=== PATIENT | male | born 1965 | race Caucasian/White ===

== ENCOUNTER 2018-06-22 21:02 | Inpatient (IN) | payer MEDICARE, MEDICAID ==
[~2018-06-22] VITALS: Ht 185.4 cm; Wt 91.0 kg
[~2018-06-22 21:02] MED LIST: ACET-2247 PO; ARIP882S IM; CINA30 PO; CLOZ100 PO; COMBISP IH; DIVA250T45 PO; DSS100 PO; ESCI20TA PO; FLUT1DIS3 IH; GABA-531 PO; LEVE250T55 PO; LITH300C3 PO; LORA1TAB3 PO; SENN-175 PO
[2018-06-22 21:30] VITALS: BP 135/77
[2018-06-22] MEDS ORDERED: ZOLPIDEM TARTRATE 10 MG TABLET PO PRN (21:45)
[2018-06-22] MEDS ORDERED: IBUPROFEN 400 MG TABLET PO PRN (22:30)
[2018-06-22] MEDS ORDERED: ONDANSETRON HCL 4 MG TABLET PO PRN (22:30)
[2018-06-22] MEDS ORDERED: PETROLATUM,WHITE 71 GM JELLY TP PRN (22:30)
[2018-06-22] MEDS ORDERED: MAG HYDROX/AL HYDROX/SIMETH ES 30 ML SUSPENSION UDCUP PO PRN (22:30)
[2018-06-22] MEDS ORDERED: LOPERAMIDE HCL 2 MG CAPSULE PO PRN (22:30)
[2018-06-22] MEDS ORDERED: ALBUTEROL SULFATE HFA 90 MCG/PUFF 8 GM INHALER IH PRN (22:30)
[2018-06-22] MEDS ORDERED: MAGNESIUM HYDROXIDE SUSPENSION 30 ML UDCUP PO PRN (22:30)
[2018-06-22] MEDS ORDERED: DOCUSATE SODIUM 100 MG CAPSULE PO PRN (22:30)
[2018-06-22] MEDS ORDERED: CloNIDine HCL 0.1 MG TABLET PO PRN (22:30)
[2018-06-23 00:07] VITALS: BP 125/77
[2018-06-23] MEDS: CINACALCET HCL 30 MG TABLET PO SCH (07:13)
[2018-06-23 07:33] LABS: BASOPHILS % (AUTO) 0.4 % (0.0-2.0); EOSINOPHILS % (AUTO) 3.5 % (1.0-6.0); HEMATOCRIT 40.8 % (41-53); HEMOGLOBIN 13.9 g/dL (13.5-17.5); LYMPHOCYTES # (AUTO) 2.8 K/uL (1.0-4.8); LYMPHOCYTES % (AUTO) 28.2 % (22.0-44.0); MEAN CORPUSCULAR HEMOGLOBIN 31.5 pg (26.0-34.0); MEAN CORPUSCULAR HGB CONC 34.1 G/dL (31.0-37.0); MEAN CORPUSCULAR VOLUME 93 fL (80-100); MONOCYTES # (AUTO) 0.8 K/uL (0.1-1.0); MONOCYTES % (AUTO) 7.8 % (2.0-9.0); NEUTROPHILS # (AUTO) 5.9 K/uL (1.8-7.7); NEUTROPHILS % (AUTO) 60.1 % (40.0-70.0); PLATELET COUNT (AUTO) 153 K/uL (150-450); RED BLOOD CELL COUNT(AUTO) 4.41 MIL/uL (4.50-5.90); RED CELL DISTRIBUTION WIDTH 14.2 % (11.5-14.5)
[2018-06-23] MEDS ORDERED: NICOTINE 14 MG/24 HOUR PATCH TD SCH (09:00)
[2018-06-23] MEDS: LevETIRAcetam 500 MG TABLET PO SCH ×2 (09:06→16:35)
[2018-06-23] MEDS: FLUTICASONE/VILANTEROL 200-25 MCG/INH INHALER [14] IH SCH (09:06)
[2018-06-23 11:03] LABS: HEMOGLOBIN A1C 5.6 % (4.5-6.2)
[2018-06-23 11:04] LABS: ANION GAP 5 mmol/L (8-16); CALCIUM, TOTAL 10.5 mg/dL (8.8-10.5); CARBON DIOXIDE 27 mmol/L (22-29); CHLORIDE 110 mmol/L (98-107); CREATININE 1.18 mg/dL (0.60-1.30); GLOMERULAR FILTR. RATE CALC > 60 mL/min (>60); GLUCOSE,RANDOM 101 mg/dL (70-110); POTASSIUM 3.9 mmol/L (3.5-5.1); SODIUM SERUM 142 mmol/L (136-145); UREA NITROGEN, BLOOD 23 mg/dL (7-18)
[2018-06-23 11:18] LABS: ALANINE AMINOTRANSFERASE 35 U/L (12-78); ALBUMIN 3.6 g/dL (3.4-5.0); ALKALINE PHOSPHATASE 139 U/L (46-116); ASPARTATE AMINOTRANSFERASE 19 U/L (15-37); BILIRUBIN,TOTAL 0.4 mg/dL (0.1-1.0); CHOL/HDL RATIO 4.9 (4.2-7.3); CHOLESTEROL 123 mg/dL (131-200); HDL CHOLESTEROL 25 mg/dL (40-60); LDL CHOL (CALC.) 56 mg/dL (0-130); THYROID STIMULATING HORMONE 0.98 uIU/mL (0.36-3.74); TOTAL PROTEIN, SERUM 7.8 g/dL (6.4-8.2); TRIGLYCERIDES 210 mg/dL (15-150)
[2018-06-23 13:06] VITALS: BP 110/70
[2018-06-23] MEDS: DIVALPROEX SODIUM 500 MG DR TABLET PO SCH (17:19)
[2018-06-23 17:52] VITALS: BP 119/71
[2018-06-23] MEDS: CloZAPine 100 MG TABLET PO SCH (20:00)
[2018-06-24 06:43] LABS: GLUCOMETER DEV NAME(LOC) PVLAB139; GLUCOSE,POINT OF CARE 88 MG/DL (70-110)
[2018-06-24] MEDS: CINACALCET HCL 30 MG TABLET PO SCH (07:20)
[2018-06-24 07:31] LABS: CHOL/HDL RATIO 4.6 (4.2-7.3)
[2018-06-24] MEDS: LevETIRAcetam 500 MG TABLET PO SCH ×2 (08:01→16:19)
[2018-06-24] MEDS: DIVALPROEX SODIUM 500 MG DR TABLET PO SCH ×2 (08:01→16:19)
[2018-06-24] MEDS: CloZAPine 100 MG TABLET PO SCH ×2 (08:01→20:34)
[2018-06-24] MEDS: FLUTICASONE/VILANTEROL 200-25 MCG/INH INHALER [14] IH SCH (08:01)
[2018-06-24] MEDS ORDERED: LevETIRAcetam 250 MG TABLET PO SCH (09:00)
[2018-06-24 09:05] VITALS: BP 100/64
[2018-06-24 15:59] VITALS: BP 109/58
[2018-06-24 16:17] LABS: GLUCOMETER DEV NAME(LOC) 3EX 1; GLUCOSE,POINT OF CARE 94 MG/DL (70-110)
[2018-06-24 19:05] VITALS: BP 109/58
[2018-06-25 05:43] LABS: GLUCOMETER DEV NAME(LOC) PVLAB139; GLUCOSE,POINT OF CARE 82 MG/DL (70-110)
[2018-06-25] MEDS: CINACALCET HCL 30 MG TABLET PO SCH (07:20)
[2018-06-25] MEDS: CloZAPine 100 MG TABLET PO SCH ×2 (07:54→20:39)
[2018-06-25] MEDS: FLUTICASONE/VILANTEROL 200-25 MCG/INH INHALER [14] IH SCH (07:55)
[2018-06-25] MEDS: LevETIRAcetam 500 MG TABLET PO SCH ×2 (07:55→16:04)
[2018-06-25] MEDS: DIVALPROEX SODIUM 500 MG DR TABLET PO SCH ×2 (07:55→16:03)
[2018-06-25 10:28] VITALS: BP 103/53
[2018-06-25 16:25] VITALS: BP 112/63
[2018-06-25 17:03] LABS: GLUCOMETER DEV NAME(LOC) 3EX 1; GLUCOSE,POINT OF CARE 107 MG/DL (70-110)
[2018-06-26 05:33] LABS: GLUCOMETER DEV NAME(LOC) 3EX 1; GLUCOSE,POINT OF CARE 104 MG/DL (70-110)
[2018-06-26] MEDS: CINACALCET HCL 30 MG TABLET PO SCH (06:36)
[2018-06-26 09:06] VITALS: BP 130/75
[2018-06-26] MEDS: DIVALPROEX SODIUM 500 MG DR TABLET PO SCH ×2 (09:12→16:12)
[2018-06-26] MEDS: CloZAPine 100 MG TABLET PO SCH ×2 (09:12→20:06)
[2018-06-26] MEDS: FLUTICASONE/VILANTEROL 200-25 MCG/INH INHALER [14] IH SCH (09:12)
[2018-06-26] MEDS: LevETIRAcetam 500 MG TABLET PO SCH ×2 (09:12→16:12)
[2018-06-26 16:49] LABS: GLUCOMETER DEV NAME(LOC) 3EX 1; GLUCOSE,POINT OF CARE 113 MG/DL (70-110)
[2018-06-26 18:04] VITALS: BP 114/68
[2018-06-27 06:14] LABS: GLUCOMETER DEV NAME(LOC) PVLAB139; GLUCOSE,POINT OF CARE 112 MG/DL (70-110)
[2018-06-27] MEDS: CINACALCET HCL 30 MG TABLET PO SCH (06:50)
[2018-06-27 08:13] VITALS: BP 113/61
[2018-06-27] MEDS: LevETIRAcetam 500 MG TABLET PO SCH ×2 (08:14→16:54)
[2018-06-27] MEDS: CloZAPine 100 MG TABLET PO SCH ×2 (08:15→20:16)
[2018-06-27] MEDS: DIVALPROEX SODIUM 500 MG DR TABLET PO SCH ×2 (08:17→16:54)
[2018-06-27] MEDS: FLUTICASONE/VILANTEROL 200-25 MCG/INH INHALER [14] IH SCH (08:17)
[2018-06-27] MEDS: LORazepam 2 MG TABLET PO PRN ×2 (10:49→20:16)
[2018-06-27 19:37] VITALS: BP_SYST 136; BP_SYST 141; BP_DIAS 55
[2018-06-27 23:18] LABS: GLUCOMETER DEV NAME(LOC) 3EX 1; GLUCOSE,POINT OF CARE 170 MG/DL (70-110)
[2018-06-28] MEDS: CINACALCET HCL 30 MG TABLET PO SCH (06:57)
[2018-06-28 08:49] VITALS: BP 130/68
[2018-06-28] MEDS: CloZAPine 100 MG TABLET PO SCH ×2 (09:00→20:29)
[2018-06-28] MEDS: FLUTICASONE/VILANTEROL 200-25 MCG/INH INHALER [14] IH SCH (09:00)
[2018-06-28] MEDS: DIVALPROEX SODIUM 500 MG DR TABLET PO SCH ×2 (09:01→16:15)
[2018-06-28] MEDS: LevETIRAcetam 500 MG TABLET PO SCH ×2 (09:01→16:15)
[2018-06-28 16:37] VITALS: BP 116/69
[2018-06-28 16:39] LABS: GLUCOMETER DEV NAME(LOC) PVLAB139; GLUCOSE,POINT OF CARE 109 MG/DL (70-110)
[2018-06-28 16:39] LABS: GLUCOMETER DEV NAME(LOC) 3EX 1; GLUCOSE,POINT OF CARE 91 MG/DL (70-110)
[2018-06-28] MEDS: LORazepam 2 MG TABLET PO PRN (20:29)
[2018-06-29 05:23] LABS: GLUCOMETER DEV NAME(LOC) PVLAB139; GLUCOSE,POINT OF CARE 120 MG/DL (70-110)
[2018-06-29] MEDS: CINACALCET HCL 30 MG TABLET PO SCH (06:32)
[2018-06-29 09:05] VITALS: BP 126/80
[2018-06-29] MEDS: DIVALPROEX SODIUM 500 MG DR TABLET PO SCH ×2 (09:10→16:31)
[2018-06-29] MEDS: CloZAPine 100 MG TABLET PO SCH ×2 (09:10→20:22)
[2018-06-29] MEDS: FLUTICASONE/VILANTEROL 200-25 MCG/INH INHALER [14] IH SCH (09:11)
[2018-06-29] MEDS: LevETIRAcetam 500 MG TABLET PO SCH ×2 (09:11→16:31)
[2018-06-29 17:28] VITALS: BP 110/68
[2018-06-30 05:43] LABS: GLUCOMETER DEV NAME(LOC) PVLAB139; GLUCOSE,POINT OF CARE 111 MG/DL (70-110)
[2018-06-30] MEDS: CINACALCET HCL 30 MG TABLET PO SCH (07:09)
[2018-06-30 08:06] LABS: BASOPHILS % (AUTO) 0.6 % (0.0-2.0); EOSINOPHILS % (AUTO) 3.9 % (1.0-6.0); HEMATOCRIT 38.5 % (41-53); HEMOGLOBIN 12.9 g/dL (13.5-17.5); LYMPHOCYTES # (AUTO) 2.2 K/uL (1.0-4.8); LYMPHOCYTES % (AUTO) 32.4 % (22.0-44.0); MEAN CORPUSCULAR HGB CONC 33.5 G/dL (31.0-37.0); MEAN CORPUSCULAR VOLUME 92 fL (80-100); MONOCYTES # (AUTO) 0.7 K/uL (0.1-1.0); MONOCYTES % (AUTO) 10.8 % (2.0-9.0); NEUTROPHILS # (AUTO) 3.6 K/uL (1.8-7.7); NEUTROPHILS % (AUTO) 52.3 % (40.0-70.0); PLATELET COUNT (AUTO) 137 K/uL (150-450); RED BLOOD CELL COUNT(AUTO) 4.17 MIL/uL (4.50-5.90)
[2018-06-30] MEDS: FLUTICASONE/VILANTEROL 200-25 MCG/INH INHALER [14] IH SCH (09:07)
[2018-06-30] MEDS: CloZAPine 100 MG TABLET PO SCH ×2 (09:08→19:55)
[2018-06-30] MEDS: DIVALPROEX SODIUM 500 MG DR TABLET PO SCH ×2 (09:08→17:10)
[2018-06-30] MEDS: LevETIRAcetam 500 MG TABLET PO SCH ×2 (09:09→17:10)
[2018-06-30] MEDS: LORazepam 2 MG TABLET PO PRN (09:09)
[2018-06-30 09:19] VITALS: BP 115/78
[2018-06-30 16:06] VITALS: BP 121/77
[2018-06-30 17:24] LABS: GLUCOMETER DEV NAME(LOC) 3EX 1; GLUCOSE,POINT OF CARE 132 MG/DL (70-110)
[2018-07-01 05:59] LABS: GLUCOMETER DEV NAME(LOC) PVLAB139; GLUCOSE,POINT OF CARE 84 MG/DL (70-110)
[2018-07-01] MEDS: CINACALCET HCL 30 MG TABLET PO SCH (07:23)
[2018-07-01] MEDS: CloZAPine 100 MG TABLET PO SCH ×2 (09:06→20:43)
[2018-07-01] MEDS: DIVALPROEX SODIUM 500 MG DR TABLET PO SCH ×2 (09:06→16:17)
[2018-07-01] MEDS: FLUTICASONE/VILANTEROL 200-25 MCG/INH INHALER [14] IH SCH (09:06)
[2018-07-01] MEDS: LevETIRAcetam 500 MG TABLET PO SCH ×2 (09:06→16:17)
[2018-07-01 13:25] VITALS: BP 127/79
[2018-07-01 16:28] VITALS: BP 120/82
[2018-07-01 16:34] LABS: GLUCOMETER DEV NAME(LOC) PVLAB139; GLUCOSE,POINT OF CARE 86 MG/DL (70-110)
[2018-07-01] MEDS: LORazepam 2 MG TABLET PO PRN (20:43)
[2018-07-02 06:40] LABS: GLUCOMETER DEV NAME(LOC) 3EC; GLUCOSE,POINT OF CARE 87 MG/DL (70-110)
[2018-07-02] MEDS: CINACALCET HCL 30 MG TABLET PO SCH (06:42)
[2018-07-02 08:44] VITALS: BP 105/75
[2018-07-02] MEDS: LevETIRAcetam 500 MG TABLET PO SCH ×2 (09:18→16:31)
[2018-07-02] MEDS: FLUTICASONE/VILANTEROL 200-25 MCG/INH INHALER [14] IH SCH (09:19)
[2018-07-02] MEDS: DIVALPROEX SODIUM 500 MG DR TABLET PO SCH ×2 (09:19→16:31)
[2018-07-02] MEDS: CloZAPine 100 MG TABLET PO SCH ×2 (09:19→20:17)
[2018-07-02] MEDS ORDERED: SUMAtriptan SUCCINATE 25 MG TABLET PO PRN (11:00)
[2018-07-02 16:28] LABS: GLUCOMETER DEV NAME(LOC) 3EX 1; GLUCOSE,POINT OF CARE 94 MG/DL (70-110)
[2018-07-02 17:00] VITALS: BP 122/74
[2018-07-03] MEDS: LORazepam 2 MG TABLET PO PRN ×3 (05:59→16:43)
[2018-07-03 06:09] LABS: GLUCOMETER DEV NAME(LOC) 3EX 1; GLUCOSE,POINT OF CARE 84 MG/DL (70-110)
[2018-07-03] MEDS: CINACALCET HCL 30 MG TABLET PO SCH (06:58)
[2018-07-03] MEDS: CloZAPine 100 MG TABLET PO SCH ×2 (07:51→20:41)
[2018-07-03] MEDS: FLUTICASONE/VILANTEROL 200-25 MCG/INH INHALER [14] IH SCH (07:51)
[2018-07-03] MEDS: DIVALPROEX SODIUM 500 MG DR TABLET PO SCH ×2 (07:51→16:44)
[2018-07-03] MEDS: LevETIRAcetam 500 MG TABLET PO SCH ×2 (07:51→16:44)
[2018-07-03 09:27] VITALS: BP 112/75
[2018-07-03] MEDS: HALOPERIDOL 5 MG TABLET PO PRN (15:34)
[2018-07-03 16:50] VITALS: BP 121/77
[2018-07-03 16:53] LABS: GLUCOMETER DEV NAME(LOC) 3EC; GLUCOSE,POINT OF CARE 116 MG/DL (70-110)
[2018-07-04] MEDS: CINACALCET HCL 30 MG TABLET PO SCH (06:39)
[2018-07-04] MEDS: LevETIRAcetam 500 MG TABLET PO SCH ×2 (08:01→16:02)
[2018-07-04] MEDS: DIVALPROEX SODIUM 500 MG DR TABLET PO SCH ×2 (08:01→16:02)
[2018-07-04] MEDS: FLUTICASONE/VILANTEROL 200-25 MCG/INH INHALER [14] IH SCH (08:01)
[2018-07-04] MEDS: CloZAPine 100 MG TABLET PO SCH ×2 (08:02→20:13)
[2018-07-04 10:27] VITALS: BP 111/77
[2018-07-04 14:55] LABS: GLUCOMETER DEV NAME(LOC) 3EX 1; GLUCOSE,POINT OF CARE 96 MG/DL (70-110)
[2018-07-04] MEDS: HALOPERIDOL 5 MG TABLET PO PRN (16:02)
[2018-07-04 16:15] VITALS: BP 108/69
[2018-07-04 16:18] LABS: GLUCOMETER DEV NAME(LOC) 3EX 1; GLUCOSE,POINT OF CARE 114 MG/DL (70-110)
[2018-07-04] MEDS: LORazepam 2 MG TABLET PO PRN (20:12)
[2018-07-05 05:39] LABS: GLUCOMETER DEV NAME(LOC) 3EI C; GLUCOSE,POINT OF CARE 90 MG/DL (70-110)
[2018-07-05] MEDS: CINACALCET HCL 30 MG TABLET PO SCH (06:02)
[2018-07-05] MEDS: LevETIRAcetam 500 MG TABLET PO SCH ×2 (07:42→16:02)
[2018-07-05] MEDS: FLUTICASONE/VILANTEROL 200-25 MCG/INH INHALER [14] IH SCH (07:42)
[2018-07-05] MEDS: DIVALPROEX SODIUM 500 MG DR TABLET PO SCH ×2 (07:43→16:02)
[2018-07-05] MEDS: CloZAPine 100 MG TABLET PO SCH ×2 (07:43→20:01)
[2018-07-05] MEDS: HALOPERIDOL 5 MG TABLET PO PRN (16:02)
[2018-07-05 16:18] LABS: GLUCOMETER DEV NAME(LOC) 3EX 1; GLUCOSE,POINT OF CARE 89 MG/DL (70-110)
[2018-07-05 19:15] VITALS: BP 126/80
[2018-07-05] MEDS: LORazepam 2 MG TABLET PO PRN (19:55)
[2018-07-06 05:35] VITALS: BP 164/77
[2018-07-06 05:35] LABS: GLUCOMETER DEV NAME(LOC) 3EI C; GLUCOSE,POINT OF CARE 94 MG/DL (70-110)
[2018-07-06] MEDS: CINACALCET HCL 30 MG TABLET PO SCH (07:12)
[2018-07-06 08:15] VITALS: BP 125/89
[2018-07-06] MEDS: LevETIRAcetam 500 MG TABLET PO SCH ×2 (09:02→16:38)
[2018-07-06] MEDS: FLUTICASONE/VILANTEROL 200-25 MCG/INH INHALER [14] IH SCH (09:02)
[2018-07-06] MEDS: DIVALPROEX SODIUM 500 MG DR TABLET PO SCH ×2 (09:02→16:38)
[2018-07-06] MEDS: CloZAPine 100 MG TABLET PO SCH ×2 (09:02→20:24)
[2018-07-06 16:59] LABS: GLUCOMETER DEV NAME(LOC) 3EX 1; GLUCOSE,POINT OF CARE 89 MG/DL (70-110)
[2018-07-06 20:50] VITALS: BP 125/82
[2018-07-07 04:05] VITALS: BP 133/86
[2018-07-07] MEDS: LORazepam 2 MG TABLET PO PRN (04:11)
[2018-07-07 06:35] LABS: GLUCOMETER DEV NAME(LOC) 3EI C; GLUCOSE,POINT OF CARE 95 MG/DL (70-110)
[2018-07-07] MEDS: CINACALCET HCL 30 MG TABLET PO SCH (07:03)
[2018-07-07] MEDS: DIVALPROEX SODIUM 500 MG DR TABLET PO SCH ×2 (08:08→16:36)
[2018-07-07] MEDS: FLUTICASONE/VILANTEROL 200-25 MCG/INH INHALER [14] IH SCH (08:08)
[2018-07-07] MEDS: LevETIRAcetam 500 MG TABLET PO SCH ×2 (08:08→16:36)
[2018-07-07] MEDS: CloZAPine 100 MG TABLET PO SCH ×2 (08:09→20:53)
[2018-07-07 08:25] VITALS: BP 94/69
[2018-07-07 20:04] VITALS: BP 102/63
[2018-07-07] MEDS: ACETAMINOPHEN 325 MG TABLET PO PRN (22:45)
[2018-07-07 22:48] LABS: GLUCOMETER DEV NAME(LOC) 3EX 1; GLUCOSE,POINT OF CARE 99 MG/DL (70-110)
[2018-07-08 05:39] LABS: GLUCOMETER DEV NAME(LOC) 3EI C; GLUCOSE,POINT OF CARE 72 MG/DL (70-110)
[2018-07-08] MEDS: ACETAMINOPHEN 325 MG TABLET PO PRN (05:58)
[2018-07-08 06:32] VITALS: BP 140/87
[2018-07-08 06:45] LABS: BASOPHILS % (AUTO) 0.4 % (0.0-2.0); EOSINOPHILS % (AUTO) 4.8 % (1.0-6.0); HEMATOCRIT 39.9 % (41-53); HEMOGLOBIN 13.2 g/dL (13.5-17.5); LYMPHOCYTES # (AUTO) 2.1 K/uL (1.0-4.8); LYMPHOCYTES % (AUTO) 30.2 % (22.0-44.0); MEAN CORPUSCULAR HEMOGLOBIN 30.9 pg (26.0-34.0); MEAN CORPUSCULAR VOLUME 94 fL (80-100); MONOCYTES # (AUTO) 0.7 K/uL (0.1-1.0); MONOCYTES % (AUTO) 10.5 % (2.0-9.0); NEUTROPHILS # (AUTO) 3.7 K/uL (1.8-7.7); NEUTROPHILS % (AUTO) 54.1 % (40.0-70.0); PLATELET COUNT (AUTO) 134 K/uL (150-450); RED BLOOD CELL COUNT(AUTO) 4.27 MIL/uL (4.50-5.90); RED CELL DISTRIBUTION WIDTH 13.5 % (11.5-14.5)
[2018-07-08] MEDS: CINACALCET HCL 30 MG TABLET PO SCH (07:05)
[2018-07-08] MEDS: FLUTICASONE/VILANTEROL 200-25 MCG/INH INHALER [14] IH SCH (08:10)
[2018-07-08] MEDS: LevETIRAcetam 500 MG TABLET PO SCH ×2 (08:10→16:30)
[2018-07-08] MEDS: DIVALPROEX SODIUM 500 MG DR TABLET PO SCH ×2 (08:10→16:30)
[2018-07-08] MEDS: CloZAPine 100 MG TABLET PO SCH ×2 (08:10→20:28)
[2018-07-08 09:46] VITALS: BP 138/69
[2018-07-08 17:30] VITALS: BP 129/65
[2018-07-08 23:04] LABS: GLUCOMETER DEV NAME(LOC) 3EX 1; GLUCOSE,POINT OF CARE 93 MG/DL (70-110)
[2018-07-09 00:45] VITALS: BP 115/83
[2018-07-09] MEDS: CINACALCET HCL 30 MG TABLET PO SCH (07:07)
[2018-07-09] MEDS: DIVALPROEX SODIUM 500 MG DR TABLET PO SCH ×2 (08:18→16:57)
[2018-07-09] MEDS: LevETIRAcetam 500 MG TABLET PO SCH ×2 (08:18→16:57)
[2018-07-09] MEDS: CloZAPine 100 MG TABLET PO SCH ×2 (08:18→20:26)
[2018-07-09] MEDS: FLUTICASONE/VILANTEROL 200-25 MCG/INH INHALER [14] IH SCH (08:19)
[2018-07-09 10:06] VITALS: BP 140/70
[2018-07-09 16:23] LABS: GLUCOMETER DEV NAME(LOC) 3EX 1; GLUCOSE,POINT OF CARE 96 MG/DL (70-110)
[2018-07-09] MEDS: LORazepam 2 MG TABLET PO PRN (18:26)
[2018-07-09 19:08] VITALS: BP 141/76
[2018-07-10 05:40] VITALS: BP 124/68
[2018-07-10 05:44] LABS: GLUCOMETER DEV NAME(LOC) 3EI C; GLUCOSE,POINT OF CARE 85 MG/DL (70-110)
[2018-07-10] MEDS: LORazepam 2 MG TABLET PO PRN (05:53)
[2018-07-10] MEDS: CINACALCET HCL 30 MG TABLET PO SCH (07:00)
[2018-07-10] MEDS: FLUTICASONE/VILANTEROL 200-25 MCG/INH INHALER [14] IH SCH (08:21)
[2018-07-10] MEDS: HALOPERIDOL 5 MG TABLET PO PRN (08:22)
[2018-07-10] MEDS: DIVALPROEX SODIUM 500 MG DR TABLET PO SCH (10:00)
[2018-07-10] MEDS: CloZAPine 100 MG TABLET PO SCH (10:00)
[2018-07-10] MEDS: LevETIRAcetam 500 MG TABLET PO SCH (10:00)
[2018-07-10] MEDS ORDERED: FLUT1BLS IH (10:50)
== END 2018-07-10 15:20 | disposition home or self-care (01) | DRG 885 ==
LOC: 3EX 21:02
PROVIDERS: ADMIT Psychiatry & Neurology Psychiatry; ATTEND Psychiatry & Neurology Psychiatry
DX: F25.9 Schizoaffective disorder, unspecified (principal); R45.851 Suicidal ideations; E11.9 Type 2 diabetes mellitus without complications; B18.2 Chronic viral hepatitis C; D64.9 Anemia, unspecified; E78.5 Hyperlipidemia, unspecified; F17.200 Nicotine dependence, unspecified, uncomplicated; G40.909 Epilepsy, unspecified, not intractable, without status epilepticus; G43.909 Migraine, unspecified, not intractable, without status migrainosus; I10 Essential (primary) hypertension; J44.9 Chronic obstructive pulmonary disease, unspecified; K21.9 Gastro-esophageal reflux disease without esophagitis; K59.00 Constipation, unspecified; K74.60 Unspecified cirrhosis of liver; F41.9 Anxiety disorder, unspecified; F43.20 Adjustment disorder, unspecified; Z79.899 Other long term (current) drug therapy; Z71.6 Tobacco abuse counseling; Z88.0 Allergy status to penicillin; Z88.8 Allergy status to other drugs, medicaments and biological substances
CPT/HCPCS: 83036; 84443; 87081

== ENCOUNTER 2018-07-28 12:08 | Inpatient (IN) | payer MEDICARE, MEDICAID ==
[~2018-07-28] VITALS: Ht 185.4 cm; Wt 95.4 kg
[~2018-07-28 12:08] MED LIST changes: -ACET-2247 PO; -ARIP882S IM; -COMBISP IH; -DSS100 PO; -ESCI20TA PO; +FLUT1BLS IH; -FLUT1DIS3 IH; -GABA-531 PO; -LITH300C3 PO; -LORA1TAB3 PO; -SENN-175 PO
[2018-07-28 13:18] LABS: GLUCOSE,POINT OF CARE 87 MG/DL (70-110)
[2018-07-28 14:07] LABS: BASOPHILS % (AUTO) 0.2 % (0.0-2.0); EOSINOPHILS % (AUTO) 2.6 % (1.0-6.0); HEMATOCRIT 40.4 % (41-53); HEMOGLOBIN 13.2 g/dL (13.5-17.5); LYMPHOCYTES # (AUTO) 1.8 K/uL (1.0-4.8); LYMPHOCYTES % (AUTO) 25.1 % (22.0-44.0); MEAN CORPUSCULAR HEMOGLOBIN 30.4 pg (26.0-34.0); MEAN CORPUSCULAR HGB CONC 32.6 G/dL (31.0-37.0); MEAN CORPUSCULAR VOLUME 93 fL (80-100); MONOCYTES # (AUTO) 0.6 K/uL (0.1-1.0); MONOCYTES % (AUTO) 8.5 % (2.0-9.0); NEUTROPHILS # (AUTO) 4.6 K/uL (1.8-7.7); NEUTROPHILS % (AUTO) 63.6 % (40.0-70.0); PLATELET COUNT (AUTO) 135 K/uL (150-450); RED BLOOD CELL COUNT(AUTO) 4.34 MIL/uL (4.50-5.90); RED CELL DISTRIBUTION WIDTH 13.7 % (11.5-14.5)
[2018-07-28 14:19] LABS: ANION GAP 7 mmol/L (8-16); CALCIUM, TOTAL 9.1 mg/dL (8.8-10.5); CARBON DIOXIDE 29 mmol/L (22-29); CHLORIDE 106 mmol/L (98-107); CREATININE 0.92 mg/dL (0.60-1.30); GLOMERULAR FILTR. RATE CALC > 60 mL/min (>60); GLUCOSE,RANDOM 84 mg/dL (70-110); POTASSIUM 3.7 mmol/L (3.5-5.1); SODIUM SERUM 142 mmol/L (136-145); UREA NITROGEN, BLOOD 12 mg/dL (7-18)
[2018-07-28 14:25] LABS: ALANINE AMINOTRANSFERASE 35 U/L (12-78); ALBUMIN 3.6 g/dL (3.4-5.0); ALKALINE PHOSPHATASE 69 U/L (46-116); ASPARTATE AMINOTRANSFERASE 25 U/L (15-37); BILIRUBIN,TOTAL 0.3 mg/dL (0.1-1.0); TOTAL PROTEIN, SERUM 7.2 g/dL (6.4-8.2)
[2018-07-28 14:32] LABS: APPEARANCE,URINE CLEAR (CLEAR); BILIRUBIN,URINE NEGATIVE (NEGATIVE); GLUCOSE, URINE (UA) NEGATIVE (NEGATIVE); KETONES,URINE NEGATIVE (NEGATIVE); LEUKOCYTE ESTERASE ,URINE NEGATIVE (NEGATIVE); NITRATE,URINE NEGATIVE (NEGATIVE); OCCULT BLOOD,URINE NEGATIVE (NEGATIVE); PROTEIN,URINE NEGATIVE (NEGATIVE); UROBILINOGEN,URINE 0.2 mg/dL (<=1.0)
[2018-07-28 14:33] LABS: AMPHET/METH SCREEN,URINE NEGATIVE (NEGATIVE); BARBITURATE SCREEN, URINE NEGATIVE (NEGATIVE); BENZODIAZEPINES SCREEN,URINE NEGATIVE (NEGATIVE); CANNABINOID SCREEN,URINE NEGATIVE (NEGATIVE); COCAINE SCREEN,URINE NEGATIVE (NEGATIVE); METHADONE SCREEN, URINE NEGATIVE (NEGATIVE); OPIATE SCREEN,URINE NEGATIVE (NEGATIVE); PHENCYCLIDINE SCREEN,URINE NEGATIVE (NEGATIVE)
[2018-07-28 14:51] LABS: BACTERIA,URINE None Seen /HPF (None Seen); RBC,URINE None Seen /HPF (0-2); SQUAMOUS EPITHELIAL CELL,UR Rare /LPF (None Seen); WBC,URINE None Seen /HPF (0-5)
[2018-07-28] MEDS ORDERED: LORazepam 1 MG TABLET PO ONE (15:15)
[2018-07-28] MEDS: DIVALPROEX SODIUM 500 MG DR TABLET PO SCH (21:00)
[2018-07-29 05:17] LABS: BASOPHILS % (AUTO) 0.2 % (0.0-2.0); EOSINOPHILS % (AUTO) 4.1 % (1.0-6.0); HEMATOCRIT 40.4 % (41-53); HEMOGLOBIN 13.2 g/dL (13.5-17.5); LYMPHOCYTES % (AUTO) 30.6 % (22.0-44.0); MEAN CORPUSCULAR HEMOGLOBIN 30.8 pg (26.0-34.0); MEAN CORPUSCULAR HGB CONC 32.8 G/dL (31.0-37.0); MEAN CORPUSCULAR VOLUME 94 fL (80-100); MONOCYTES # (AUTO) 0.6 K/uL (0.1-1.0); MONOCYTES % (AUTO) 9.5 % (2.0-9.0); NEUTROPHILS # (AUTO) 3.6 K/uL (1.8-7.7); NEUTROPHILS % (AUTO) 55.6 % (40.0-70.0); PLATELET COUNT (AUTO) 138 K/uL (150-450); RED CELL DISTRIBUTION WIDTH 13.7 % (11.5-14.5)
[2018-07-29 05:24] LABS: CHOL/HDL RATIO 3.1 (4.2-7.3)
[2018-07-29] MEDS: DIVALPROEX SODIUM 500 MG DR TABLET PO SCH ×2 (10:13→16:10)
[2018-07-29] MEDS: CloZAPine 100 MG TABLET PO SCH ×2 (10:13→20:10)
[2018-07-29] MEDS: HALOPERIDOL 5 MG TABLET PO PRN ×2 (11:47→16:10)
[2018-07-29] MEDS: LORazepam 2 MG TABLET PO PRN ×2 (11:47→16:10)
[2018-07-29] MEDS: ZOLPIDEM TARTRATE 10 MG TABLET PO PRN (20:10)
[2018-07-30 02:07] VITALS: BP 134/99
[2018-07-30] MEDS: LORazepam 2 MG TABLET PO PRN ×3 (02:12→17:10)
[2018-07-30] MEDS ORDERED: GuaiFENesin/D-METHORPHAN [SUGAR-FREE] 200-20MG/10 ML SYRUP UDCUP PO PRN (07:30)
[2018-07-30] MEDS ORDERED: PETROLATUM,WHITE 71 GM JELLY TP PRN (07:30)
[2018-07-30] MEDS ORDERED: MAGNESIUM HYDROXIDE SUSPENSION 30 ML UDCUP PO PRN (07:30)
[2018-07-30] MEDS ORDERED: CloNIDine HCL 0.1 MG TABLET PO PRN (07:30)
[2018-07-30] MEDS ORDERED: ALBUTEROL SULFATE HFA 90 MCG/PUFF 8 GM INHALER IH PRN (07:30)
[2018-07-30] MEDS: DIVALPROEX SODIUM 500 MG DR TABLET PO SCH ×2 (08:10→17:06)
[2018-07-30] MEDS: CloZAPine 100 MG TABLET PO SCH ×2 (08:11→20:39)
[2018-07-30] MEDS: HALOPERIDOL 5 MG TABLET PO PRN ×2 (08:11→17:10)
[2018-07-30] MEDS: LevETIRAcetam 500 MG TABLET PO SCH ×2 (08:11→17:06)
[2018-07-30] MEDS: CINACALCET HCL 30 MG TABLET PO SCH (08:12)
[2018-07-30] MEDS: FLUTICASONE/VILANTEROL 200-25 MCG/INH INHALER [14] IH SCH (08:15)
[2018-07-30 08:52] VITALS: BP 126/69
[2018-07-30] MEDS ORDERED: CloZAPine 25 MG TABLET PO SCH (09:45)
[2018-07-30 16:06] VITALS: BP 131/82
[2018-07-30] MEDS: ZOLPIDEM TARTRATE 10 MG TABLET PO PRN (20:39)
[2018-07-30] MEDS: LOPERAMIDE HCL 2 MG CAPSULE PO PRN (20:39)
[2018-07-31 08:00] LABS: HEMOGLOBIN A1C 5.4 % (4.5-6.2)
[2018-07-31] MEDS: CINACALCET HCL 30 MG TABLET PO SCH (08:22)
[2018-07-31] MEDS: FLUTICASONE/VILANTEROL 200-25 MCG/INH INHALER [14] IH SCH (08:22)
[2018-07-31] MEDS: CloZAPine 100 MG TABLET PO SCH ×2 (08:22→20:35)
[2018-07-31] MEDS: DIVALPROEX SODIUM 500 MG DR TABLET PO SCH ×2 (08:22→15:54)
[2018-07-31] MEDS: LevETIRAcetam 500 MG TABLET PO SCH ×2 (08:22→15:54)
[2018-07-31] MEDS: LORazepam 2 MG TABLET PO PRN ×3 (08:22→19:11)
[2018-07-31] MEDS: HALOPERIDOL 5 MG TABLET PO PRN ×3 (08:23→21:26)
[2018-07-31 08:32] LABS: CHOL/HDL RATIO 3.8 (4.2-7.3); THYROID STIMULATING HORMONE 1.19 uIU/mL (0.36-3.74)
[2018-07-31] MEDS: LOPERAMIDE HCL 2 MG CAPSULE PO PRN (15:54)
[2018-07-31 16:09] VITALS: BP 130/91
[2018-07-31] MEDS: MUPIROCIN CALCIUM 2% 22 GM OINTMENT NASAL SCH (17:00)
[2018-07-31] MEDS: ZOLPIDEM TARTRATE 10 MG TABLET PO PRN (20:47)
[2018-08-01] MEDS: LORazepam 2 MG TABLET PO PRN ×2 (01:32→06:52)
[2018-08-01] MEDS: HALOPERIDOL 5 MG TABLET PO PRN (06:52)
[2018-08-01] MEDS: CINACALCET HCL 30 MG TABLET PO SCH (06:52)
[2018-08-01] MEDS: CloZAPine 100 MG TABLET PO SCH ×2 (09:05→20:18)
[2018-08-01] MEDS: LevETIRAcetam 500 MG TABLET PO SCH ×2 (09:06→16:23)
[2018-08-01] MEDS: DIVALPROEX SODIUM 500 MG DR TABLET PO SCH ×2 (09:06→16:23)
[2018-08-01] MEDS: MUPIROCIN CALCIUM 2% 22 GM OINTMENT NASAL SCH ×2 (09:10→16:27)
[2018-08-01] MEDS: FLUTICASONE/VILANTEROL 200-25 MCG/INH INHALER [14] IH SCH (12:59)
[2018-08-01 16:53] VITALS: BP 132/79
[2018-08-02] MEDS: CINACALCET HCL 30 MG TABLET PO SCH (07:24)
[2018-08-02 08:30] VITALS: BP 135/72
[2018-08-02] MEDS: MUPIROCIN CALCIUM 2% 22 GM OINTMENT NASAL SCH ×2 (09:12→17:14)
[2018-08-02] MEDS: HALOPERIDOL 5 MG TABLET PO PRN (09:12)
[2018-08-02] MEDS: CloZAPine 100 MG TABLET PO SCH ×2 (09:12→20:12)
[2018-08-02] MEDS: DIVALPROEX SODIUM 500 MG DR TABLET PO SCH ×2 (09:12→17:15)
[2018-08-02] MEDS: LevETIRAcetam 500 MG TABLET PO SCH ×2 (09:12→17:14)
[2018-08-02] MEDS: FLUTICASONE/VILANTEROL 200-25 MCG/INH INHALER [14] IH SCH (09:12)
[2018-08-02] MEDS: LORazepam 2 MG TABLET PO PRN (09:12)
[2018-08-02] MEDS: NICOTINE 14 MG/24 HOUR PATCH TD PRN (09:21)
[2018-08-02 17:07] VITALS: BP 122/81
[2018-08-02] MEDS: ZOLPIDEM TARTRATE 10 MG TABLET PO PRN (23:43)
[2018-08-03 05:00] VITALS: BP 144/73
[2018-08-03] MEDS: CINACALCET HCL 30 MG TABLET PO SCH (06:44)
[2018-08-03] MEDS: DIVALPROEX SODIUM 500 MG DR TABLET PO SCH ×2 (08:09→16:06)
[2018-08-03] MEDS: LevETIRAcetam 500 MG TABLET PO SCH ×2 (08:09→16:06)
[2018-08-03] MEDS: CloZAPine 100 MG TABLET PO SCH ×2 (08:09→20:11)
[2018-08-03] MEDS: MUPIROCIN CALCIUM 2% 22 GM OINTMENT NASAL SCH ×2 (08:10→16:06)
[2018-08-03] MEDS: FLUTICASONE/VILANTEROL 200-25 MCG/INH INHALER [14] IH SCH (08:10)
[2018-08-03] MEDS: LORazepam 2 MG TABLET PO PRN ×2 (08:13→16:07)
[2018-08-03] MEDS: HALOPERIDOL 5 MG TABLET PO PRN ×2 (08:13→16:06)
[2018-08-03 10:05] VITALS: BP 137/87
[2018-08-04 00:01] VITALS: BP 116/93
[2018-08-04] MEDS: ZOLPIDEM TARTRATE 10 MG TABLET PO PRN (00:03)
[2018-08-04] MEDS: HALOPERIDOL 5 MG TABLET PO PRN ×4 (00:03→20:00)
[2018-08-04] MEDS: LORazepam 2 MG TABLET PO PRN ×4 (01:39→20:00)
[2018-08-04] MEDS: CINACALCET HCL 30 MG TABLET PO SCH (07:24)
[2018-08-04 08:09] VITALS: BP 133/76
[2018-08-04] MEDS: DIVALPROEX SODIUM 500 MG DR TABLET PO SCH ×2 (08:10→16:24)
[2018-08-04] MEDS: LevETIRAcetam 500 MG TABLET PO SCH ×2 (08:10→16:24)
[2018-08-04] MEDS: CloZAPine 100 MG TABLET PO SCH ×2 (08:10→20:01)
[2018-08-04] MEDS: MUPIROCIN CALCIUM 2% 22 GM OINTMENT NASAL SCH ×2 (08:11→16:24)
[2018-08-04] MEDS: FLUTICASONE/VILANTEROL 200-25 MCG/INH INHALER [14] IH SCH (08:11)
[2018-08-04 16:00] VITALS: BP 140/88
[2018-08-05 01:05] VITALS: BP 154/67
[2018-08-05] MEDS: ZOLPIDEM TARTRATE 10 MG TABLET PO PRN ×2 (01:07→21:46)
[2018-08-05] MEDS: CINACALCET HCL 30 MG TABLET PO SCH (06:59)
[2018-08-05 07:42] LABS: BASOPHILS % (AUTO) 0.5 % (0.0-2.0); EOSINOPHILS % (AUTO) 3.5 % (1.0-6.0); HEMATOCRIT 39.6 % (41-53); LYMPHOCYTES # (AUTO) 1.2 K/uL (1.0-4.8); LYMPHOCYTES % (AUTO) 21.7 % (22.0-44.0); MEAN CORPUSCULAR HEMOGLOBIN 30.7 pg (26.0-34.0); MEAN CORPUSCULAR HGB CONC 32.8 G/dL (31.0-37.0); MEAN CORPUSCULAR VOLUME 94 fL (80-100); MONOCYTES # (AUTO) 0.6 K/uL (0.1-1.0); MONOCYTES % (AUTO) 9.9 % (2.0-9.0); NEUTROPHILS # (AUTO) 3.7 K/uL (1.8-7.7); NEUTROPHILS % (AUTO) 64.4 % (40.0-70.0); PLATELET COUNT (AUTO) 131 K/uL (150-450); RED BLOOD CELL COUNT(AUTO) 4.23 MIL/uL (4.50-5.90); RED CELL DISTRIBUTION WIDTH 13.2 % (11.5-14.5)
[2018-08-05] MEDS: DIVALPROEX SODIUM 500 MG DR TABLET PO SCH ×2 (08:58→16:13)
[2018-08-05] MEDS: CloZAPine 100 MG TABLET PO SCH ×2 (08:58→21:00)
[2018-08-05] MEDS: LevETIRAcetam 500 MG TABLET PO SCH ×2 (08:58→16:13)
[2018-08-05] MEDS: LORazepam 2 MG TABLET PO PRN ×2 (08:58→21:46)
[2018-08-05] MEDS: FLUTICASONE/VILANTEROL 200-25 MCG/INH INHALER [14] IH SCH (09:00)
[2018-08-05] MEDS: MUPIROCIN CALCIUM 2% 22 GM OINTMENT NASAL SCH (09:02)
[2018-08-05 09:45] VITALS: BP 144/83
[2018-08-05] MEDS: HALOPERIDOL 5 MG TABLET PO PRN (21:47)
[2018-08-06 03:30] VITALS: BP 104/81
[2018-08-06] MEDS: LORazepam 2 MG TABLET PO PRN ×4 (03:49→20:16)
[2018-08-06] MEDS: CINACALCET HCL 30 MG TABLET PO SCH (07:00)
[2018-08-06 08:30] VITALS: BP 146/82
[2018-08-06] MEDS: LevETIRAcetam 500 MG TABLET PO SCH ×2 (08:43→16:01)
[2018-08-06] MEDS: CloZAPine 100 MG TABLET PO SCH ×2 (08:43→20:15)
[2018-08-06] MEDS: DIVALPROEX SODIUM 500 MG DR TABLET PO SCH ×2 (08:44→16:01)
[2018-08-06] MEDS: HALOPERIDOL 5 MG TABLET PO PRN ×2 (08:44→20:16)
[2018-08-06] MEDS: FLUTICASONE/VILANTEROL 200-25 MCG/INH INHALER [14] IH SCH (08:47)
[2018-08-06 17:59] VITALS: BP 155/101
[2018-08-06] MEDS: ZOLPIDEM TARTRATE 10 MG TABLET PO PRN (20:15)
[2018-08-07 06:29] VITALS: BP 111/65
[2018-08-07] MEDS: CINACALCET HCL 30 MG TABLET PO SCH (07:07)
[2018-08-07 08:08] VITALS: BP 128/92
[2018-08-07] MEDS: DIVALPROEX SODIUM 500 MG DR TABLET PO SCH ×2 (08:23→15:53)
[2018-08-07] MEDS: LevETIRAcetam 500 MG TABLET PO SCH ×2 (08:23→15:53)
[2018-08-07] MEDS: CloZAPine 100 MG TABLET PO SCH ×2 (08:23→21:04)
[2018-08-07] MEDS: LORazepam 2 MG TABLET PO PRN ×2 (08:23→17:07)
[2018-08-07] MEDS: HALOPERIDOL 5 MG TABLET PO PRN ×2 (08:24→17:07)
[2018-08-07] MEDS: FLUTICASONE/VILANTEROL 200-25 MCG/INH INHALER [14] IH SCH (09:00)
[2018-08-07 16:03] VITALS: BP 126/82
[2018-08-07] MEDS: ZOLPIDEM TARTRATE 10 MG TABLET PO PRN (21:04)
[2018-08-08 02:48] VITALS: BP 139/93
[2018-08-08] MEDS: LORazepam 2 MG TABLET PO PRN ×2 (04:04→08:34)
[2018-08-08] MEDS: HALOPERIDOL 5 MG TABLET PO PRN ×2 (04:04→08:34)
[2018-08-08] MEDS: CINACALCET HCL 30 MG TABLET PO SCH (07:15)
[2018-08-08] MEDS: CloZAPine 100 MG TABLET PO SCH ×2 (08:20→21:10)
[2018-08-08] MEDS: FLUTICASONE/VILANTEROL 200-25 MCG/INH INHALER [14] IH SCH (08:20)
[2018-08-08] MEDS: DIVALPROEX SODIUM 500 MG DR TABLET PO SCH ×2 (08:20→16:05)
[2018-08-08] MEDS: LevETIRAcetam 500 MG TABLET PO SCH ×2 (08:20→16:05)
[2018-08-08 09:26] VITALS: BP 142/94
[2018-08-08 17:00] VITALS: BP 146/89
[2018-08-09 03:50] VITALS: BP 141/81
[2018-08-09] MEDS: IBUPROFEN 400 MG TABLET PO PRN (03:55)
[2018-08-09] MEDS: CINACALCET HCL 30 MG TABLET PO SCH (07:11)
[2018-08-09] MEDS: DIVALPROEX SODIUM 500 MG DR TABLET PO SCH ×2 (08:20→16:43)
[2018-08-09] MEDS: CloZAPine 100 MG TABLET PO SCH ×2 (08:21→20:47)
[2018-08-09] MEDS: LevETIRAcetam 500 MG TABLET PO SCH ×2 (08:22→16:43)
[2018-08-09] MEDS: LORazepam 2 MG TABLET PO PRN ×3 (08:22→23:50)
[2018-08-09] MEDS: HALOPERIDOL 5 MG TABLET PO PRN ×3 (08:22→23:50)
[2018-08-09] MEDS: FLUTICASONE/VILANTEROL 200-25 MCG/INH INHALER [14] IH SCH (09:03)
[2018-08-09 09:08] VITALS: BP 117/72
[2018-08-09 17:00] VITALS: BP 112/73
[2018-08-09] MEDS: ZOLPIDEM TARTRATE 10 MG TABLET PO PRN (21:06)
[2018-08-10 00:10] VITALS: BP 128/86
[2018-08-10] MEDS: CINACALCET HCL 30 MG TABLET PO SCH (07:08)
[2018-08-10 08:05] VITALS: BP 122/80
[2018-08-10] MEDS: CloZAPine 100 MG TABLET PO SCH ×2 (08:20→20:05)
[2018-08-10] MEDS: LevETIRAcetam 500 MG TABLET PO SCH ×2 (08:21→16:43)
[2018-08-10] MEDS: DIVALPROEX SODIUM 500 MG DR TABLET PO SCH ×2 (08:21→20:06)
[2018-08-10] MEDS: LORazepam 2 MG TABLET PO PRN ×3 (08:23→17:00)
[2018-08-10] MEDS: HALOPERIDOL 5 MG TABLET PO PRN ×2 (08:23→13:00)
[2018-08-10] MEDS: FLUTICASONE/VILANTEROL 200-25 MCG/INH INHALER [14] IH SCH (08:24)
[2018-08-10 17:02] VITALS: BP 135/84
[2018-08-10] MEDS: HALOPERIDOL 10 MG TABLET PO SCH (20:06)
[2018-08-11 05:05] VITALS: BP 146/82
[2018-08-11] MEDS: CINACALCET HCL 30 MG TABLET PO SCH (07:22)
[2018-08-11 08:10] VITALS: BP 140/78
[2018-08-11] MEDS: FLUTICASONE/VILANTEROL 200-25 MCG/INH INHALER [14] IH SCH (09:00)
[2018-08-11] MEDS: LevETIRAcetam 500 MG TABLET PO SCH ×2 (09:00→16:08)
[2018-08-11] MEDS: CloZAPine 100 MG TABLET PO SCH ×2 (09:00→20:28)
[2018-08-11] MEDS: HALOPERIDOL 5 MG TABLET PO PRN ×2 (09:02→16:10)
[2018-08-11] MEDS: DIVALPROEX SODIUM 500 MG DR TABLET PO SCH ×2 (09:02→20:28)
[2018-08-11] MEDS: LORazepam 2 MG TABLET PO PRN ×2 (09:02→16:10)
[2018-08-11] MEDS: IBUPROFEN 400 MG TABLET PO PRN (10:36)
[2018-08-11 16:33] VITALS: BP 144/79
[2018-08-11] MEDS: HALOPERIDOL 10 MG TABLET PO SCH (20:28)
[2018-08-11] MEDS: ZOLPIDEM TARTRATE 10 MG TABLET PO PRN (23:45)
[2018-08-12 02:00] VITALS: BP 129/85
[2018-08-12] MEDS: LORazepam 2 MG TABLET PO PRN ×3 (02:00→20:08)
[2018-08-12] MEDS: HALOPERIDOL 5 MG TABLET PO PRN ×2 (02:01→11:57)
[2018-08-12] MEDS: IBUPROFEN 400 MG TABLET PO PRN (02:20)
[2018-08-12] MEDS: CINACALCET HCL 30 MG TABLET PO SCH (07:08)
[2018-08-12 07:11] LABS: BASOPHILS % (AUTO) 0.3 % (0.0-2.0); EOSINOPHILS % (AUTO) 6.4 % (1.0-6.0); HEMATOCRIT 39.4 % (41-53); LYMPHOCYTES # (AUTO) 1.7 K/uL (1.0-4.8); LYMPHOCYTES % (AUTO) 30.1 % (22.0-44.0); MEAN CORPUSCULAR VOLUME 94 fL (80-100); MONOCYTES # (AUTO) 0.5 K/uL (0.1-1.0); MONOCYTES % (AUTO) 8.8 % (2.0-9.0); NEUTROPHILS # (AUTO) 3.2 K/uL (1.8-7.7); NEUTROPHILS % (AUTO) 54.4 % (40.0-70.0); PLATELET COUNT (AUTO) 133 K/uL (150-450); RED BLOOD CELL COUNT(AUTO) 4.19 MIL/uL (4.50-5.90); RED CELL DISTRIBUTION WIDTH 13.4 % (11.5-14.5)
[2018-08-12] MEDS: DIVALPROEX SODIUM 500 MG DR TABLET PO SCH ×2 (08:10→20:46)
[2018-08-12] MEDS: CloZAPine 100 MG TABLET PO SCH ×2 (08:10→20:46)
[2018-08-12] MEDS: FLUTICASONE/VILANTEROL 200-25 MCG/INH INHALER [14] IH SCH (08:12)
[2018-08-12] MEDS: LevETIRAcetam 500 MG TABLET PO SCH ×2 (08:12→16:18)
[2018-08-12] MEDS: CHOLECALCIFEROL (VIT D3) 400 UNITS TABLET PO SCH (16:18)
[2018-08-12] MEDS: HALOPERIDOL 10 MG TABLET PO SCH (20:46)
[2018-08-12 21:26] VITALS: BP 132/86
[2018-08-13 03:35] VITALS: BP 130/77
[2018-08-13] MEDS: HALOPERIDOL 5 MG TABLET PO PRN ×2 (03:40→08:35)
[2018-08-13] MEDS: CINACALCET HCL 30 MG TABLET PO SCH (06:41)
[2018-08-13] MEDS: FLUTICASONE/VILANTEROL 200-25 MCG/INH INHALER [14] IH SCH (08:22)
[2018-08-13] MEDS: LevETIRAcetam 500 MG TABLET PO SCH ×2 (08:22→16:42)
[2018-08-13] MEDS: DIVALPROEX SODIUM 500 MG DR TABLET PO SCH ×2 (08:22→20:25)
[2018-08-13] MEDS: CHOLECALCIFEROL (VIT D3) 400 UNITS TABLET PO SCH ×2 (08:23→16:42)
[2018-08-13] MEDS: CloZAPine 100 MG TABLET PO SCH ×2 (08:23→20:25)
[2018-08-13 08:30] VITALS: BP 143/80
[2018-08-13] MEDS: LORazepam 2 MG TABLET PO PRN ×2 (08:35→23:59)
[2018-08-13 17:14] VITALS: BP 125/85
[2018-08-13] MEDS: HALOPERIDOL 10 MG TABLET PO SCH (20:25)
[2018-08-13] MEDS: ZOLPIDEM TARTRATE 10 MG TABLET PO PRN (23:59)
[2018-08-14 00:01] VITALS: BP 147/90
[2018-08-14] MEDS: HALOPERIDOL 5 MG TABLET PO PRN ×4 (01:15→18:50)
[2018-08-14] MEDS: CINACALCET HCL 30 MG TABLET PO SCH (06:56)
[2018-08-14 07:03] LABS: ANION GAP 6 mmol/L (8-16); CALCIUM, TOTAL 9.1 mg/dL (8.8-10.5); CARBON DIOXIDE 28 mmol/L (22-29); CHLORIDE 109 mmol/L (98-107); CREATININE 1.09 mg/dL (0.60-1.30); GLOMERULAR FILTR. RATE CALC > 60 mL/min (>60); GLUCOSE,RANDOM 91 mg/dL (70-110); POTASSIUM 4.4 mmol/L (3.5-5.1); SODIUM SERUM 143 mmol/L (136-145); UREA NITROGEN, BLOOD 23 mg/dL (7-18)
[2018-08-14 07:59] LABS: VALPROIC ACID 61 mcg/mL (50-100)
[2018-08-14] MEDS: LORazepam 2 MG TABLET PO PRN ×3 (08:02→16:11)
[2018-08-14 08:20] VITALS: BP 110/85
[2018-08-14] MEDS: CloZAPine 100 MG TABLET PO SCH ×2 (08:29→21:29)
[2018-08-14] MEDS: CHOLECALCIFEROL (VIT D3) 400 UNITS TABLET PO SCH ×2 (08:30→16:10)
[2018-08-14] MEDS: LevETIRAcetam 500 MG TABLET PO SCH ×2 (08:30→16:10)
[2018-08-14] MEDS: DIVALPROEX SODIUM 500 MG DR TABLET PO SCH ×2 (08:30→21:30)
[2018-08-14] MEDS: FLUTICASONE/VILANTEROL 200-25 MCG/INH INHALER [14] IH SCH (08:42)
[2018-08-14] MEDS: LOPERAMIDE HCL 2 MG CAPSULE PO PRN (16:12)
[2018-08-14 17:00] VITALS: BP 132/72
[2018-08-14] MEDS: HALOPERIDOL 10 MG TABLET PO SCH (21:29)
[2018-08-15] MEDS: CINACALCET HCL 30 MG TABLET PO SCH (07:31)
[2018-08-15] MEDS: CHOLECALCIFEROL (VIT D3) 400 UNITS TABLET PO SCH ×2 (08:45→16:34)
[2018-08-15] MEDS: LevETIRAcetam 500 MG TABLET PO SCH ×2 (08:45→16:34)
[2018-08-15] MEDS: DIVALPROEX SODIUM 500 MG DR TABLET PO SCH ×2 (08:45→20:06)
[2018-08-15] MEDS: CloZAPine 100 MG TABLET PO SCH ×2 (08:45→20:07)
[2018-08-15] MEDS: HALOPERIDOL 5 MG TABLET PO PRN (08:47)
[2018-08-15] MEDS: LORazepam 2 MG TABLET PO PRN (08:48)
[2018-08-15] MEDS: FLUTICASONE/VILANTEROL 200-25 MCG/INH INHALER [14] IH SCH (09:00)
[2018-08-15 12:29] VITALS: BP 115/75
[2018-08-15 16:20] VITALS: BP 123/73
[2018-08-15] MEDS: HALOPERIDOL 10 MG TABLET PO SCH (20:06)
[2018-08-15] MEDS: ZOLPIDEM TARTRATE 10 MG TABLET PO PRN (20:30)
[2018-08-16] MEDS: HALOPERIDOL 5 MG TABLET PO PRN ×2 (01:14→09:24)
[2018-08-16 01:42] VITALS: BP 116/75
[2018-08-16] MEDS: CINACALCET HCL 30 MG TABLET PO SCH (07:18)
[2018-08-16] MEDS: FLUTICASONE/VILANTEROL 200-25 MCG/INH INHALER [14] IH SCH (09:23)
[2018-08-16] MEDS: CloZAPine 100 MG TABLET PO SCH ×2 (09:23→20:18)
[2018-08-16] MEDS: DIVALPROEX SODIUM 500 MG DR TABLET PO SCH ×2 (09:23→20:19)
[2018-08-16] MEDS: LevETIRAcetam 500 MG TABLET PO SCH ×2 (09:24→16:33)
[2018-08-16] MEDS: CHOLECALCIFEROL (VIT D3) 400 UNITS TABLET PO SCH ×2 (09:24→16:33)
[2018-08-16] MEDS: LORazepam 2 MG TABLET PO PRN (09:24)
[2018-08-16 10:36] VITALS: BP 136/84
[2018-08-16 17:21] VITALS: BP 136/69
[2018-08-16] MEDS ORDERED: HALOPERIDOL LACTATE 5 MG/ML VIAL IM ONE (18:45)
[2018-08-16] MEDS: HALOPERIDOL 10 MG TABLET PO SCH (20:18)
[2018-08-16] MEDS: ZOLPIDEM TARTRATE 10 MG TABLET PO PRN (21:43)
[2018-08-17] MEDS: CINACALCET HCL 30 MG TABLET PO SCH (07:12)
[2018-08-17] MEDS: DIVALPROEX SODIUM 500 MG DR TABLET PO SCH ×2 (08:49→20:51)
[2018-08-17] MEDS: LORazepam 2 MG TABLET PO PRN (08:49)
[2018-08-17] MEDS: FLUTICASONE/VILANTEROL 200-25 MCG/INH INHALER [14] IH SCH (08:49)
[2018-08-17] MEDS: CloZAPine 100 MG TABLET PO SCH ×2 (08:50→20:51)
[2018-08-17] MEDS: CHOLECALCIFEROL (VIT D3) 400 UNITS TABLET PO SCH ×2 (08:50→16:16)
[2018-08-17] MEDS: LevETIRAcetam 500 MG TABLET PO SCH ×2 (08:50→16:16)
[2018-08-17 16:18] VITALS: BP 148/85
[2018-08-17] MEDS: HALOPERIDOL 10 MG TABLET PO SCH (20:51)
[2018-08-18 04:00] VITALS: BP 143/83
[2018-08-18] MEDS: HALOPERIDOL 5 MG TABLET PO PRN ×3 (04:09→14:54)
[2018-08-18] MEDS: LORazepam 2 MG TABLET PO PRN ×3 (04:09→14:53)
[2018-08-18] MEDS: CINACALCET HCL 30 MG TABLET PO SCH (07:02)
[2018-08-18 08:50] VITALS: BP 133/82
[2018-08-18] MEDS: FLUTICASONE/VILANTEROL 200-25 MCG/INH INHALER [14] IH SCH (08:53)
[2018-08-18] MEDS: DIVALPROEX SODIUM 500 MG DR TABLET PO SCH ×2 (08:53→20:23)
[2018-08-18] MEDS: CHOLECALCIFEROL (VIT D3) 400 UNITS TABLET PO SCH ×2 (08:53→16:52)
[2018-08-18] MEDS: CloZAPine 100 MG TABLET PO SCH ×2 (08:53→20:24)
[2018-08-18] MEDS: LevETIRAcetam 500 MG TABLET PO SCH ×2 (08:53→16:52)
[2018-08-18] MEDS ORDERED: HALOPERIDOL LACTATE 5 MG/ML VIAL IM ONE (16:45)
[2018-08-18] MEDS ORDERED: LORazepam 2 MG/ML VIAL IM ONE (16:45)
[2018-08-18 17:38] VITALS: BP 127/80
[2018-08-18] MEDS: HALOPERIDOL 10 MG TABLET PO SCH (20:23)
[2018-08-18] MEDS: ZOLPIDEM TARTRATE 10 MG TABLET PO PRN (20:24)
[2018-08-19 05:28] VITALS: BP 116/79
[2018-08-19 07:12] LABS: BASOPHILS % (AUTO) 0.3 % (0.0-2.0); EOSINOPHILS % (AUTO) 4.1 % (1.0-6.0); HEMATOCRIT 39.3 % (41-53); LYMPHOCYTES # (AUTO) 2.1 K/uL (1.0-4.8); LYMPHOCYTES % (AUTO) 27.6 % (22.0-44.0); MEAN CORPUSCULAR HEMOGLOBIN 30.9 pg (26.0-34.0); MEAN CORPUSCULAR HGB CONC 33.2 G/dL (31.0-37.0); MEAN CORPUSCULAR VOLUME 93 fL (80-100); MONOCYTES # (AUTO) 0.6 K/uL (0.1-1.0); MONOCYTES % (AUTO) 8.7 % (2.0-9.0); NEUTROPHILS # (AUTO) 4.4 K/uL (1.8-7.7); NEUTROPHILS % (AUTO) 59.3 % (40.0-70.0); PLATELET COUNT (AUTO) 125 K/uL (150-450); RED BLOOD CELL COUNT(AUTO) 4.22 MIL/uL (4.50-5.90); RED CELL DISTRIBUTION WIDTH 13.5 % (11.5-14.5)
[2018-08-19] MEDS: CINACALCET HCL 30 MG TABLET PO SCH (07:13)
[2018-08-19 08:47] VITALS: BP 131/78
[2018-08-19] MEDS: CloZAPine 100 MG TABLET PO SCH ×2 (08:48→20:15)
[2018-08-19] MEDS: DIVALPROEX SODIUM 500 MG DR TABLET PO SCH ×2 (08:48→20:15)
[2018-08-19] MEDS: HALOPERIDOL 5 MG TABLET PO PRN (08:48)
[2018-08-19] MEDS: LevETIRAcetam 500 MG TABLET PO SCH ×2 (08:48→16:48)
[2018-08-19] MEDS: LORazepam 2 MG TABLET PO PRN (08:48)
[2018-08-19] MEDS: CHOLECALCIFEROL (VIT D3) 400 UNITS TABLET PO SCH ×2 (08:49→16:48)
[2018-08-19] MEDS: FLUTICASONE/VILANTEROL 200-25 MCG/INH INHALER [14] IH SCH (09:10)
[2018-08-19] MEDS: HALOPERIDOL 10 MG TABLET PO SCH (20:15)
[2018-08-20 04:41] VITALS: BP 124/75
[2018-08-20] MEDS: CINACALCET HCL 30 MG TABLET PO SCH (07:04)
[2018-08-20] MEDS: CHOLECALCIFEROL (VIT D3) 400 UNITS TABLET PO SCH ×2 (09:11→16:58)
[2018-08-20] MEDS: LORazepam 2 MG TABLET PO PRN (09:11)
[2018-08-20] MEDS: CloZAPine 100 MG TABLET PO SCH ×2 (09:11→21:11)
[2018-08-20] MEDS: FLUTICASONE/VILANTEROL 200-25 MCG/INH INHALER [14] IH SCH (09:11)
[2018-08-20] MEDS: HALOPERIDOL 5 MG TABLET PO PRN (09:11)
[2018-08-20] MEDS: DIVALPROEX SODIUM 500 MG DR TABLET PO SCH ×2 (09:11→21:11)
[2018-08-20] MEDS: LevETIRAcetam 500 MG TABLET PO SCH ×2 (09:11→16:58)
[2018-08-20] MEDS ORDERED: HALOPERIDOL LACTATE 5 MG/ML VIAL IM ONE (10:30)
[2018-08-20] MEDS ORDERED: DiphenhydrAMINE HCL 50 MG/ML VIAL IM ONE (10:30)
[2018-08-20] MEDS ORDERED: LORazepam 2 MG/ML VIAL IM ONE (10:30)
[2018-08-20 13:24] VITALS: BP 122/78
[2018-08-20] MEDS: HALOPERIDOL 10 MG TABLET PO SCH (21:11)
[2018-08-21] MEDS: CINACALCET HCL 30 MG TABLET PO SCH (07:15)
[2018-08-21] MEDS: LevETIRAcetam 500 MG TABLET PO SCH ×2 (08:29→16:24)
[2018-08-21] MEDS: DIVALPROEX SODIUM 500 MG DR TABLET PO SCH ×2 (08:30→20:44)
[2018-08-21] MEDS: CloZAPine 100 MG TABLET PO SCH ×2 (08:30→20:45)
[2018-08-21] MEDS: CHOLECALCIFEROL (VIT D3) 400 UNITS TABLET PO SCH ×2 (08:30→16:24)
[2018-08-21] MEDS: FLUTICASONE/VILANTEROL 200-25 MCG/INH INHALER [14] IH SCH (08:33)
[2018-08-21 10:51] VITALS: BP 140/86
[2018-08-21 16:01] VITALS: BP 133/77
[2018-08-21] MEDS: LORazepam 2 MG TABLET PO PRN (16:24)
[2018-08-21] MEDS: HALOPERIDOL 10 MG TABLET PO SCH (20:42)
[2018-08-22 03:05] VITALS: BP 131/89
[2018-08-22] MEDS: LORazepam 2 MG TABLET PO PRN (03:48)
[2018-08-22] MEDS: CINACALCET HCL 30 MG TABLET PO SCH (07:05)
[2018-08-22] MEDS: CloZAPine 100 MG TABLET PO SCH ×2 (08:42→20:12)
[2018-08-22] MEDS: DIVALPROEX SODIUM 500 MG DR TABLET PO SCH ×2 (08:42→20:12)
[2018-08-22] MEDS: LevETIRAcetam 500 MG TABLET PO SCH ×2 (08:42→16:25)
[2018-08-22] MEDS: CHOLECALCIFEROL (VIT D3) 400 UNITS TABLET PO SCH ×2 (08:42→16:25)
[2018-08-22] MEDS: FLUTICASONE/VILANTEROL 200-25 MCG/INH INHALER [14] IH SCH (08:43)
[2018-08-22 12:49] VITALS: BP 128/71
[2018-08-22] MEDS: HALOPERIDOL 10 MG TABLET PO SCH (20:12)
[2018-08-22 22:22] VITALS: BP 138/85
[2018-08-23] MEDS: CINACALCET HCL 30 MG TABLET PO SCH (07:15)
[2018-08-23] MEDS: CHOLECALCIFEROL (VIT D3) 400 UNITS TABLET PO SCH ×2 (08:30→16:15)
[2018-08-23] MEDS: FLUTICASONE/VILANTEROL 200-25 MCG/INH INHALER [14] IH SCH (08:30)
[2018-08-23] MEDS: DIVALPROEX SODIUM 500 MG DR TABLET PO SCH ×2 (08:32→20:30)
[2018-08-23] MEDS: LevETIRAcetam 500 MG TABLET PO SCH ×2 (08:32→16:14)
[2018-08-23] MEDS: CloZAPine 100 MG TABLET PO SCH ×2 (08:32→20:29)
[2018-08-23] MEDS: LORazepam 2 MG TABLET PO PRN ×2 (09:31→16:16)
[2018-08-23 09:41] VITALS: BP 119/85
[2018-08-23] MEDS: HALOPERIDOL 5 MG TABLET PO PRN (16:17)
[2018-08-23 16:20] VITALS: BP 124/67
[2018-08-23] MEDS: HALOPERIDOL 10 MG TABLET PO SCH (20:29)
[2018-08-24] MEDS: CINACALCET HCL 30 MG TABLET PO SCH (07:20)
[2018-08-24] MEDS: LevETIRAcetam 500 MG TABLET PO SCH ×2 (07:38→16:01)
[2018-08-24] MEDS: CloZAPine 100 MG TABLET PO SCH ×2 (07:38→20:08)
[2018-08-24] MEDS: DIVALPROEX SODIUM 500 MG DR TABLET PO SCH ×2 (07:38→20:07)
[2018-08-24] MEDS: HALOPERIDOL 5 MG TABLET PO PRN (07:39)
[2018-08-24] MEDS: NICOTINE 14 MG/24 HOUR PATCH TD PRN (07:39)
[2018-08-24] MEDS: LORazepam 2 MG TABLET PO PRN (07:39)
[2018-08-24 08:00] VITALS: BP 111/75
[2018-08-24] MEDS: FLUTICASONE/VILANTEROL 200-25 MCG/INH INHALER [14] IH SCH (08:58)
[2018-08-24] MEDS: CHOLECALCIFEROL (VIT D3) 400 UNITS TABLET PO SCH ×2 (09:00→16:01)
[2018-08-24 18:00] VITALS: BP 126/76
[2018-08-24] MEDS: HALOPERIDOL 10 MG TABLET PO SCH (20:07)
[2018-08-25] MEDS: LORazepam 2 MG TABLET PO PRN ×2 (03:15→20:21)
[2018-08-25] MEDS: CINACALCET HCL 30 MG TABLET PO SCH (06:57)
[2018-08-25] MEDS: CHOLECALCIFEROL (VIT D3) 400 UNITS TABLET PO SCH ×2 (08:29→16:30)
[2018-08-25] MEDS: CloZAPine 100 MG TABLET PO SCH ×2 (08:29→20:02)
[2018-08-25] MEDS: DIVALPROEX SODIUM 500 MG DR TABLET PO SCH ×2 (08:29→20:02)
[2018-08-25] MEDS: LevETIRAcetam 500 MG TABLET PO SCH ×2 (08:30→16:30)
[2018-08-25] MEDS: FLUTICASONE/VILANTEROL 200-25 MCG/INH INHALER [14] IH SCH (09:00)
[2018-08-25 09:39] VITALS: BP 131/86
[2018-08-25] MEDS: HALOPERIDOL 10 MG TABLET PO SCH (20:02)
[2018-08-26 03:39] VITALS: BP 142/74
[2018-08-26 07:02] LABS: BASOPHILS % (AUTO) 0.3 % (0.0-2.0); EOSINOPHILS % (AUTO) 4.6 % (1.0-6.0); HEMATOCRIT 41.1 % (41-53); HEMOGLOBIN 13.7 g/dL (13.5-17.5); LYMPHOCYTES # (AUTO) 2.1 K/uL (1.0-4.8); LYMPHOCYTES % (AUTO) 29.6 % (22.0-44.0); MEAN CORPUSCULAR HEMOGLOBIN 31.1 pg (26.0-34.0); MEAN CORPUSCULAR HGB CONC 33.5 G/dL (31.0-37.0); MEAN CORPUSCULAR VOLUME 93 fL (80-100); MONOCYTES # (AUTO) 0.8 K/uL (0.1-1.0); MONOCYTES % (AUTO) 10.8 % (2.0-9.0); NEUTROPHILS # (AUTO) 3.8 K/uL (1.8-7.7); NEUTROPHILS % (AUTO) 54.7 % (40.0-70.0); PLATELET COUNT (AUTO) 122 K/uL (150-450); RED BLOOD CELL COUNT(AUTO) 4.43 MIL/uL (4.50-5.90); RED CELL DISTRIBUTION WIDTH 13.6 % (11.5-14.5)
[2018-08-26] MEDS: CINACALCET HCL 30 MG TABLET PO SCH (07:08)
[2018-08-26] MEDS: CloZAPine 100 MG TABLET PO SCH ×2 (08:16→21:14)
[2018-08-26] MEDS: DIVALPROEX SODIUM 500 MG DR TABLET PO SCH ×2 (08:16→21:15)
[2018-08-26] MEDS: CHOLECALCIFEROL (VIT D3) 400 UNITS TABLET PO SCH ×2 (08:16→16:07)
[2018-08-26] MEDS: LevETIRAcetam 500 MG TABLET PO SCH ×2 (08:16→16:08)
[2018-08-26] MEDS: FLUTICASONE/VILANTEROL 200-25 MCG/INH INHALER [14] IH SCH (08:17)
[2018-08-26] MEDS: HALOPERIDOL 5 MG TABLET PO PRN (16:08)
[2018-08-26] MEDS: LORazepam 2 MG TABLET PO PRN (16:08)
[2018-08-26 16:30] VITALS: BP 137/99
[2018-08-26] MEDS: HALOPERIDOL 10 MG TABLET PO SCH (21:15)
[2018-08-27 03:15] VITALS: BP 146/83
[2018-08-27] MEDS: CINACALCET HCL 30 MG TABLET PO SCH (07:04)
[2018-08-27] MEDS: CloZAPine 100 MG TABLET PO SCH ×2 (08:10→20:41)
[2018-08-27] MEDS: DIVALPROEX SODIUM 500 MG DR TABLET PO SCH ×2 (08:10→20:41)
[2018-08-27] MEDS: HALOPERIDOL 5 MG TABLET PO PRN ×2 (08:10→19:00)
[2018-08-27] MEDS: LevETIRAcetam 500 MG TABLET PO SCH ×2 (08:10→17:52)
[2018-08-27] MEDS: CHOLECALCIFEROL (VIT D3) 400 UNITS TABLET PO SCH ×2 (08:10→17:52)
[2018-08-27] MEDS: LORazepam 2 MG TABLET PO PRN ×2 (08:10→19:00)
[2018-08-27] MEDS: FLUTICASONE/VILANTEROL 200-25 MCG/INH INHALER [14] IH SCH (08:11)
[2018-08-27 08:36] VITALS: BP 138/74
[2018-08-27 16:27] VITALS: BP 140/67
[2018-08-27] MEDS: HALOPERIDOL 10 MG TABLET PO SCH (20:41)
[2018-08-28 02:35] VITALS: BP 136/76
[2018-08-28] MEDS: CINACALCET HCL 30 MG TABLET PO SCH (07:09)
[2018-08-28 08:15] VITALS: BP 121/71
[2018-08-28] MEDS: CloZAPine 100 MG TABLET PO SCH ×2 (08:54→20:28)
[2018-08-28] MEDS: CHOLECALCIFEROL (VIT D3) 400 UNITS TABLET PO SCH ×2 (08:55→16:12)
[2018-08-28] MEDS: LevETIRAcetam 500 MG TABLET PO SCH ×2 (08:55→16:12)
[2018-08-28] MEDS: DIVALPROEX SODIUM 500 MG DR TABLET PO SCH ×2 (08:55→20:28)
[2018-08-28] MEDS: FLUTICASONE/VILANTEROL 200-25 MCG/INH INHALER [14] IH SCH (09:00)
[2018-08-28] MEDS ORDERED: PNEUMOCOCCAL VACCINE POLYVALENT 0.5 ML VIAL [PPSV23] IM ONE (13:15)
[2018-08-28 17:00] VITALS: BP 115/69
[2018-08-28] MEDS: HALOPERIDOL 10 MG TABLET PO SCH (20:27)
[2018-08-29 01:57] VITALS: BP 123/87
[2018-08-29] MEDS: CINACALCET HCL 30 MG TABLET PO SCH (07:07)
[2018-08-29 08:00] VITALS: BP 105/72
[2018-08-29] MEDS: CHOLECALCIFEROL (VIT D3) 400 UNITS TABLET PO SCH ×2 (09:10→16:03)
[2018-08-29] MEDS: DIVALPROEX SODIUM 500 MG DR TABLET PO SCH ×2 (09:10→20:01)
[2018-08-29] MEDS: HALOPERIDOL 5 MG TABLET PO PRN ×2 (09:11→16:03)
[2018-08-29] MEDS: LevETIRAcetam 500 MG TABLET PO SCH ×2 (09:11→16:03)
[2018-08-29] MEDS: LORazepam 2 MG TABLET PO PRN ×2 (09:11→19:25)
[2018-08-29] MEDS: CloZAPine 100 MG TABLET PO SCH ×2 (09:11→20:00)
[2018-08-29] MEDS: FLUTICASONE/VILANTEROL 200-25 MCG/INH INHALER [14] IH SCH (09:15)
[2018-08-29 19:42] VITALS: BP 124/75
[2018-08-29] MEDS: HALOPERIDOL 10 MG TABLET PO SCH (20:00)
[2018-08-30] MEDS: CINACALCET HCL 30 MG TABLET PO SCH (07:09)
[2018-08-30 08:00] VITALS: BP 120/80
[2018-08-30] MEDS: CloZAPine 100 MG TABLET PO SCH ×2 (08:48→20:31)
[2018-08-30] MEDS: DIVALPROEX SODIUM 500 MG DR TABLET PO SCH ×2 (08:48→20:31)
[2018-08-30] MEDS: LevETIRAcetam 500 MG TABLET PO SCH ×2 (08:48→17:40)
[2018-08-30] MEDS: LORazepam 2 MG TABLET PO PRN ×2 (08:48→14:04)
[2018-08-30] MEDS: DOCUSATE SODIUM 100 MG CAPSULE PO PRN (08:48)
[2018-08-30] MEDS: FLUTICASONE/VILANTEROL 200-25 MCG/INH INHALER [14] IH SCH (08:49)
[2018-08-30] MEDS: CHOLECALCIFEROL (VIT D3) 400 UNITS TABLET PO SCH ×2 (08:50→17:40)
[2018-08-30] MEDS: HALOPERIDOL 5 MG TABLET PO PRN (14:22)
[2018-08-30 16:19] VITALS: BP 119/76
[2018-08-30] MEDS: HALOPERIDOL 10 MG TABLET PO SCH (20:31)
[2018-08-31 02:00] VITALS: BP 126/81
[2018-08-31] MEDS: ZOLPIDEM TARTRATE 10 MG TABLET PO PRN ×2 (02:01→20:53)
[2018-08-31 04:07] VITALS: BP 138/79
[2018-08-31] MEDS: IBUPROFEN 400 MG TABLET PO PRN (04:11)
[2018-08-31] MEDS: CINACALCET HCL 30 MG TABLET PO SCH (06:57)
[2018-08-31] MEDS: LevETIRAcetam 500 MG TABLET PO SCH ×2 (07:29→16:14)
[2018-08-31] MEDS: CHOLECALCIFEROL (VIT D3) 400 UNITS TABLET PO SCH ×2 (07:29→16:14)
[2018-08-31] MEDS: DIVALPROEX SODIUM 500 MG DR TABLET PO SCH ×2 (07:29→20:52)
[2018-08-31] MEDS: CloZAPine 100 MG TABLET PO SCH ×2 (07:29→20:52)
[2018-08-31] MEDS: LORazepam 2 MG TABLET PO PRN (07:32)
[2018-08-31] MEDS: HALOPERIDOL 5 MG TABLET PO PRN (07:32)
[2018-08-31] MEDS: FLUTICASONE/VILANTEROL 200-25 MCG/INH INHALER [14] IH SCH (07:34)
[2018-08-31 08:00] VITALS: BP 130/90
[2018-08-31] MEDS: HALOPERIDOL 10 MG TABLET PO SCH (20:51)
[2018-09-01] MEDS: HALOPERIDOL 5 MG TABLET PO PRN (05:10)
[2018-09-01] MEDS: CINACALCET HCL 30 MG TABLET PO SCH (06:38)
[2018-09-01] MEDS: LORazepam 2 MG TABLET PO PRN (07:56)
[2018-09-01] MEDS: CloZAPine 100 MG TABLET PO SCH ×2 (07:56→20:53)
[2018-09-01] MEDS: LevETIRAcetam 500 MG TABLET PO SCH ×2 (07:56→16:18)
[2018-09-01] MEDS: CHOLECALCIFEROL (VIT D3) 400 UNITS TABLET PO SCH ×2 (07:57→16:18)
[2018-09-01] MEDS: FLUTICASONE/VILANTEROL 200-25 MCG/INH INHALER [14] IH SCH (07:57)
[2018-09-01] MEDS: DIVALPROEX SODIUM 500 MG DR TABLET PO SCH ×2 (07:58→20:54)
[2018-09-01] MEDS: HALOPERIDOL 10 MG TABLET PO SCH (20:53)
[2018-09-01] MEDS: ZOLPIDEM TARTRATE 10 MG TABLET PO PRN (20:55)
[2018-09-02] MEDS: ACETAMINOPHEN 325 MG TABLET PO PRN (03:23)
[2018-09-02 03:30] VITALS: BP 128/89
[2018-09-02] MEDS: CINACALCET HCL 30 MG TABLET PO SCH (06:32)
[2018-09-02 07:04] LABS: BASOPHILS % (AUTO) 0.5 % (0.0-2.0); EOSINOPHILS % (AUTO) 4.9 % (1.0-6.0); HEMATOCRIT 42.1 % (41-53); HEMOGLOBIN 14.2 g/dL (13.5-17.5); LYMPHOCYTES # (AUTO) 1.9 K/uL (1.0-4.8); LYMPHOCYTES % (AUTO) 28.4 % (22.0-44.0); MEAN CORPUSCULAR HEMOGLOBIN 30.8 pg (26.0-34.0); MEAN CORPUSCULAR HGB CONC 33.7 G/dL (31.0-37.0); MEAN CORPUSCULAR VOLUME 91 fL (80-100); MONOCYTES # (AUTO) 0.7 K/uL (0.1-1.0); MONOCYTES % (AUTO) 10.4 % (2.0-9.0); NEUTROPHILS # (AUTO) 3.8 K/uL (1.8-7.7); NEUTROPHILS % (AUTO) 55.8 % (40.0-70.0); PLATELET COUNT (AUTO) 111 K/uL (150-450); RED CELL DISTRIBUTION WIDTH 13.6 % (11.5-14.5)
[2018-09-02] MEDS: CHOLECALCIFEROL (VIT D3) 400 UNITS TABLET PO SCH ×2 (08:04→16:59)
[2018-09-02] MEDS: HALOPERIDOL 5 MG TABLET PO PRN ×2 (08:04→14:10)
[2018-09-02] MEDS: LevETIRAcetam 500 MG TABLET PO SCH ×2 (08:04→16:59)
[2018-09-02] MEDS: DIVALPROEX SODIUM 500 MG DR TABLET PO SCH ×2 (08:04→20:26)
[2018-09-02] MEDS: CloZAPine 100 MG TABLET PO SCH ×2 (08:04→20:25)
[2018-09-02] MEDS: LORazepam 2 MG TABLET PO PRN ×2 (08:04→14:10)
[2018-09-02] MEDS: FLUTICASONE/VILANTEROL 200-25 MCG/INH INHALER [14] IH SCH (08:05)
[2018-09-02 09:49] VITALS: BP 153/92
[2018-09-02] MEDS: IBUPROFEN 400 MG TABLET PO PRN (14:10)
[2018-09-02 16:30] VITALS: BP 128/74
[2018-09-02] MEDS: HALOPERIDOL 10 MG TABLET PO SCH (20:26)
[2018-09-03] MEDS: ZOLPIDEM TARTRATE 10 MG TABLET PO PRN ×2 (00:45→21:38)
[2018-09-03] MEDS: LORazepam 2 MG TABLET PO PRN (00:45)
[2018-09-03] MEDS: CINACALCET HCL 30 MG TABLET PO SCH (06:47)
[2018-09-03] MEDS: LevETIRAcetam 500 MG TABLET PO SCH ×2 (08:50→16:00)
[2018-09-03] MEDS: CHOLECALCIFEROL (VIT D3) 400 UNITS TABLET PO SCH ×2 (08:50→16:00)
[2018-09-03] MEDS: DIVALPROEX SODIUM 500 MG DR TABLET PO SCH ×2 (08:50→21:35)
[2018-09-03] MEDS: FLUTICASONE/VILANTEROL 200-25 MCG/INH INHALER [14] IH SCH (08:50)
[2018-09-03] MEDS: NICOTINE 14 MG/24 HOUR PATCH TD PRN (08:50)
[2018-09-03] MEDS: CloZAPine 100 MG TABLET PO SCH ×2 (08:50→21:35)
[2018-09-03] MEDS: HALOPERIDOL 5 MG TABLET PO PRN (16:00)
[2018-09-03 16:17] VITALS: BP 142/84
[2018-09-03 16:43] LABS: GLUCOMETER DEV NAME(LOC) 3EX 1; GLUCOSE,POINT OF CARE 108 MG/DL (70-110)
[2018-09-03] MEDS: HALOPERIDOL 10 MG TABLET PO SCH (21:35)
[2018-09-04 06:18] VITALS: BP 134/88
[2018-09-04] MEDS: CINACALCET HCL 30 MG TABLET PO SCH (06:43)
[2018-09-04] MEDS: CHOLECALCIFEROL (VIT D3) 400 UNITS TABLET PO SCH ×2 (08:13→16:31)
[2018-09-04] MEDS: DIVALPROEX SODIUM 500 MG DR TABLET PO SCH ×2 (08:13→20:14)
[2018-09-04] MEDS: LevETIRAcetam 500 MG TABLET PO SCH ×2 (08:14→16:31)
[2018-09-04] MEDS: CloZAPine 100 MG TABLET PO SCH ×2 (08:14→20:13)
[2018-09-04] MEDS: FLUTICASONE/VILANTEROL 200-25 MCG/INH INHALER [14] IH SCH (08:14)
[2018-09-04 11:00] VITALS: BP 117/73
[2018-09-04 18:38] VITALS: BP 130/82
[2018-09-04] MEDS: HALOPERIDOL 10 MG TABLET PO SCH (20:14)
[2018-09-04] MEDS: ZOLPIDEM TARTRATE 10 MG TABLET PO PRN (20:14)
[2018-09-05 01:29] VITALS: BP 125/65
[2018-09-05] MEDS: IBUPROFEN 400 MG TABLET PO PRN (01:30)
[2018-09-05] MEDS: CINACALCET HCL 30 MG TABLET PO SCH (07:24)
[2018-09-05] MEDS: LevETIRAcetam 500 MG TABLET PO SCH ×2 (08:58→16:55)
[2018-09-05] MEDS: DIVALPROEX SODIUM 500 MG DR TABLET PO SCH ×2 (08:58→21:23)
[2018-09-05] MEDS: CloZAPine 100 MG TABLET PO SCH ×2 (08:59→21:23)
[2018-09-05] MEDS: CHOLECALCIFEROL (VIT D3) 400 UNITS TABLET PO SCH ×2 (08:59→16:55)
[2018-09-05] MEDS: FLUTICASONE/VILANTEROL 200-25 MCG/INH INHALER [14] IH SCH (09:00)
[2018-09-05 09:32] VITALS: BP 156/92
[2018-09-05] MEDS: LORazepam 2 MG TABLET PO PRN ×2 (10:05→16:55)
[2018-09-05 19:04] VITALS: BP 145/75
[2018-09-05] MEDS: HALOPERIDOL 10 MG TABLET PO SCH (21:23)
[2018-09-06 00:54] VITALS: BP 131/79
[2018-09-06 02:20] VITALS: BP 124/86
[2018-09-06] MEDS: IBUPROFEN 400 MG TABLET PO PRN ×2 (02:25→14:19)
[2018-09-06] MEDS: CINACALCET HCL 30 MG TABLET PO SCH (07:04)
[2018-09-06 08:14] VITALS: BP 142/83
[2018-09-06] MEDS: FLUTICASONE/VILANTEROL 200-25 MCG/INH INHALER [14] IH SCH (08:48)
[2018-09-06] MEDS: CloZAPine 100 MG TABLET PO SCH ×2 (08:48→20:39)
[2018-09-06] MEDS: LevETIRAcetam 500 MG TABLET PO SCH ×2 (08:49→16:41)
[2018-09-06] MEDS: CHOLECALCIFEROL (VIT D3) 400 UNITS TABLET PO SCH ×2 (08:49→16:41)
[2018-09-06] MEDS: DIVALPROEX SODIUM 500 MG DR TABLET PO SCH ×2 (08:49→20:40)
[2018-09-06] MEDS: LORazepam 2 MG TABLET PO PRN ×2 (08:50→14:19)
[2018-09-06] MEDS: HALOPERIDOL 5 MG TABLET PO PRN ×2 (08:53→16:43)
[2018-09-06 16:51] VITALS: BP 122/80
[2018-09-06] MEDS: HALOPERIDOL 10 MG TABLET PO SCH (20:39)
[2018-09-07 05:12] VITALS: BP 137/76
[2018-09-07 06:30] VITALS: BP 158/82
[2018-09-07] MEDS: IBUPROFEN 400 MG TABLET PO PRN ×2 (06:36→17:26)
[2018-09-07] MEDS: CINACALCET HCL 30 MG TABLET PO SCH (06:36)
[2018-09-07] MEDS: CHOLECALCIFEROL (VIT D3) 400 UNITS TABLET PO SCH ×2 (07:34→16:23)
[2018-09-07] MEDS: CloZAPine 100 MG TABLET PO SCH ×2 (07:34→20:26)
[2018-09-07] MEDS: DIVALPROEX SODIUM 500 MG DR TABLET PO SCH ×2 (07:35→20:26)
[2018-09-07] MEDS: LevETIRAcetam 500 MG TABLET PO SCH ×2 (07:35→16:23)
[2018-09-07] MEDS: FLUTICASONE/VILANTEROL 200-25 MCG/INH INHALER [14] IH SCH (07:35)
[2018-09-07] MEDS: HALOPERIDOL 5 MG TABLET PO PRN (08:26)
[2018-09-07] MEDS: LORazepam 2 MG TABLET PO PRN (08:26)
[2018-09-07 09:23] VITALS: BP 134/83
[2018-09-07 16:06] VITALS: BP 128/78
[2018-09-07] MEDS: HALOPERIDOL 10 MG TABLET PO SCH (20:26)
[2018-09-08 00:37] VITALS: BP 117/70
[2018-09-08] MEDS: ZOLPIDEM TARTRATE 10 MG TABLET PO PRN (00:39)
[2018-09-08] MEDS: LORazepam 2 MG TABLET PO PRN ×3 (00:39→17:30)
[2018-09-08] MEDS: MAG HYDROX/AL HYDROX/SIMETH ES 30 ML SUSPENSION UDCUP PO PRN (06:51)
[2018-09-08] MEDS: CINACALCET HCL 30 MG TABLET PO SCH (07:21)
[2018-09-08] MEDS: LevETIRAcetam 500 MG TABLET PO SCH ×2 (08:50→15:56)
[2018-09-08] MEDS: DIVALPROEX SODIUM 500 MG DR TABLET PO SCH ×2 (08:51→19:55)
[2018-09-08] MEDS: HALOPERIDOL 5 MG TABLET PO PRN ×2 (08:52→15:32)
[2018-09-08] MEDS: CHOLECALCIFEROL (VIT D3) 400 UNITS TABLET PO SCH ×2 (08:52→15:56)
[2018-09-08] MEDS: CloZAPine 100 MG TABLET PO SCH ×2 (08:52→19:54)
[2018-09-08] MEDS: FLUTICASONE/VILANTEROL 200-25 MCG/INH INHALER [14] IH SCH (08:54)
[2018-09-08] MEDS: NICOTINE 14 MG/24 HOUR PATCH TD PRN ×2 (08:54→09:59)
[2018-09-08 12:42] VITALS: BP 141/71
[2018-09-08 19:18] VITALS: BP 137/86
[2018-09-08] MEDS: HALOPERIDOL 10 MG TABLET PO SCH (19:55)
[2018-09-09] MEDS: ACETAMINOPHEN 325 MG TABLET PO PRN (04:23)
[2018-09-09 04:55] VITALS: BP 126/69
[2018-09-09] MEDS: IBUPROFEN 400 MG TABLET PO PRN (06:29)
[2018-09-09] MEDS: CINACALCET HCL 30 MG TABLET PO SCH (06:30)
[2018-09-09] MEDS: LORazepam 2 MG TABLET PO PRN ×2 (07:02→12:28)
[2018-09-09 07:40] LABS: BASOPHILS % (AUTO) 0.4 % (0.0-2.0); EOSINOPHILS % (AUTO) 5.2 % (1.0-6.0); HEMATOCRIT 40.9 % (41-53); HEMOGLOBIN 13.7 g/dL (13.5-17.5); LYMPHOCYTES # (AUTO) 1.7 K/uL (1.0-4.8); LYMPHOCYTES % (AUTO) 25.2 % (22.0-44.0); MEAN CORPUSCULAR HEMOGLOBIN 30.9 pg (26.0-34.0); MEAN CORPUSCULAR HGB CONC 33.5 G/dL (31.0-37.0); MEAN CORPUSCULAR VOLUME 92 fL (80-100); MONOCYTES # (AUTO) 0.6 K/uL (0.1-1.0); MONOCYTES % (AUTO) 9.3 % (2.0-9.0); NEUTROPHILS % (AUTO) 59.9 % (40.0-70.0); PLATELET COUNT (AUTO) 104 K/uL (150-450); RED BLOOD CELL COUNT(AUTO) 4.42 MIL/uL (4.50-5.90); RED CELL DISTRIBUTION WIDTH 13.7 % (11.5-14.5)
[2018-09-09] MEDS: LevETIRAcetam 500 MG TABLET PO SCH ×2 (08:01→17:26)
[2018-09-09] MEDS: CloZAPine 100 MG TABLET PO SCH ×2 (08:01→20:16)
[2018-09-09] MEDS: DIVALPROEX SODIUM 500 MG DR TABLET PO SCH ×2 (08:01→20:04)
[2018-09-09] MEDS: HALOPERIDOL 5 MG TABLET PO PRN ×2 (08:01→12:28)
[2018-09-09] MEDS: CHOLECALCIFEROL (VIT D3) 400 UNITS TABLET PO SCH ×2 (08:02→17:26)
[2018-09-09] MEDS: LOPERAMIDE HCL 2 MG CAPSULE PO PRN (08:55)
[2018-09-09] MEDS: NICOTINE 14 MG/24 HOUR PATCH TD PRN (08:55)
[2018-09-09] MEDS: MAG HYDROX/AL HYDROX/SIMETH ES 30 ML SUSPENSION UDCUP PO PRN (08:55)
[2018-09-09] MEDS: FLUTICASONE/VILANTEROL 200-25 MCG/INH INHALER [14] IH SCH (09:00)
[2018-09-09 10:38] VITALS: BP 130/88
[2018-09-09 16:30] VITALS: BP 124/73
[2018-09-09] MEDS: HALOPERIDOL 10 MG TABLET PO SCH (20:05)
[2018-09-09] MEDS: ZOLPIDEM TARTRATE 10 MG TABLET PO PRN (22:08)
[2018-09-10 00:17] VITALS: BP 127/74
[2018-09-10 05:50] VITALS: BP 115/76
[2018-09-10] MEDS: IBUPROFEN 400 MG TABLET PO PRN (05:54)
[2018-09-10] MEDS: HALOPERIDOL 5 MG TABLET PO PRN ×2 (05:57→16:52)
[2018-09-10] MEDS: CINACALCET HCL 30 MG TABLET PO SCH (06:55)
[2018-09-10] MEDS: FLUTICASONE/VILANTEROL 200-25 MCG/INH INHALER [14] IH SCH (08:58)
[2018-09-10] MEDS: DIVALPROEX SODIUM 500 MG DR TABLET PO SCH ×2 (08:59→20:43)
[2018-09-10] MEDS: CloZAPine 100 MG TABLET PO SCH ×2 (08:59→20:43)
[2018-09-10] MEDS: CHOLECALCIFEROL (VIT D3) 400 UNITS TABLET PO SCH ×2 (09:00→16:50)
[2018-09-10] MEDS: LORazepam 2 MG TABLET PO PRN ×2 (09:02→16:53)
[2018-09-10] MEDS: LevETIRAcetam 500 MG TABLET PO SCH ×2 (09:03→16:50)
[2018-09-10] MEDS: NICOTINE 14 MG/24 HOUR PATCH TD PRN (09:04)
[2018-09-10 19:32] VITALS: BP 126/78
[2018-09-10] MEDS: HALOPERIDOL 10 MG TABLET PO SCH (20:44)
[2018-09-11 05:24] VITALS: BP 128/82
[2018-09-11] MEDS: CINACALCET HCL 30 MG TABLET PO SCH (06:59)
[2018-09-11] MEDS: CHOLECALCIFEROL (VIT D3) 400 UNITS TABLET PO SCH ×2 (08:41→16:41)
[2018-09-11] MEDS: CloZAPine 100 MG TABLET PO SCH ×2 (08:41→20:45)
[2018-09-11] MEDS: DIVALPROEX SODIUM 500 MG DR TABLET PO SCH ×2 (08:41→20:45)
[2018-09-11] MEDS: FLUTICASONE/VILANTEROL 200-25 MCG/INH INHALER [14] IH SCH (08:42)
[2018-09-11] MEDS: LevETIRAcetam 500 MG TABLET PO SCH ×2 (08:42→16:41)
[2018-09-11 09:48] VITALS: BP 127/68
[2018-09-11] MEDS: LORazepam 2 MG TABLET PO PRN ×2 (12:41→19:46)
[2018-09-11] MEDS: HALOPERIDOL 5 MG TABLET PO PRN (15:31)
[2018-09-11 19:05] VITALS: BP 125/75
[2018-09-11] MEDS: HALOPERIDOL 10 MG TABLET PO SCH (20:45)
[2018-09-12 08:30] VITALS: BP 132/77
[2018-09-12] MEDS: CHOLECALCIFEROL (VIT D3) 400 UNITS TABLET PO SCH ×2 (09:02→16:47)
[2018-09-12] MEDS: CloZAPine 100 MG TABLET PO SCH ×2 (09:02→20:05)
[2018-09-12] MEDS: DIVALPROEX SODIUM 500 MG DR TABLET PO SCH ×2 (09:02→20:05)
[2018-09-12] MEDS: CINACALCET HCL 30 MG TABLET PO SCH (09:02)
[2018-09-12] MEDS: LevETIRAcetam 500 MG TABLET PO SCH ×2 (09:02→16:49)
[2018-09-12] MEDS: FLUTICASONE/VILANTEROL 200-25 MCG/INH INHALER [14] IH SCH (09:03)
[2018-09-12] MEDS: LORazepam 2 MG TABLET PO PRN (09:18)
[2018-09-12 16:06] VITALS: BP 127/84
[2018-09-12] MEDS: HALOPERIDOL 10 MG TABLET PO SCH (20:04)
[2018-09-13 05:15] VITALS: BP 156/93
[2018-09-13] MEDS: IBUPROFEN 400 MG TABLET PO PRN (05:15)
[2018-09-13] MEDS: CINACALCET HCL 30 MG TABLET PO SCH (07:06)
[2018-09-13] MEDS: CHOLECALCIFEROL (VIT D3) 400 UNITS TABLET PO SCH ×2 (08:01→16:15)
[2018-09-13] MEDS: DIVALPROEX SODIUM 500 MG DR TABLET PO SCH ×2 (08:02→20:26)
[2018-09-13] MEDS: LevETIRAcetam 500 MG TABLET PO SCH ×2 (08:02→16:15)
[2018-09-13] MEDS: LORazepam 2 MG TABLET PO PRN (08:02)
[2018-09-13] MEDS: FLUTICASONE/VILANTEROL 200-25 MCG/INH INHALER [14] IH SCH (08:02)
[2018-09-13] MEDS: CloZAPine 100 MG TABLET PO SCH ×2 (08:02→20:28)
[2018-09-13] MEDS: HALOPERIDOL 5 MG TABLET PO PRN (08:03)
[2018-09-13 08:15] VITALS: BP 126/74
[2018-09-13] MEDS: ACETAMINOPHEN 325 MG TABLET PO PRN (11:52)
[2018-09-13 17:21] VITALS: BP 125/78
[2018-09-13] MEDS: HALOPERIDOL 10 MG TABLET PO SCH (20:26)
[2018-09-14 06:08] VITALS: BP 136/95
[2018-09-14] MEDS: CINACALCET HCL 30 MG TABLET PO SCH (07:14)
[2018-09-14 08:05] VITALS: BP 128/78
[2018-09-14 08:09] VITALS: BP 147/86
[2018-09-14] MEDS: LevETIRAcetam 500 MG TABLET PO SCH ×2 (08:52→16:19)
[2018-09-14] MEDS: CloZAPine 100 MG TABLET PO SCH ×2 (08:52→20:34)
[2018-09-14] MEDS: CHOLECALCIFEROL (VIT D3) 400 UNITS TABLET PO SCH ×2 (08:52→16:19)
[2018-09-14] MEDS: DIVALPROEX SODIUM 500 MG DR TABLET PO SCH ×2 (08:52→20:34)
[2018-09-14] MEDS: LORazepam 2 MG TABLET PO PRN (08:52)
[2018-09-14] MEDS: HALOPERIDOL 5 MG TABLET PO PRN (08:52)
[2018-09-14] MEDS: FLUTICASONE/VILANTEROL 200-25 MCG/INH INHALER [14] IH SCH (08:53)
[2018-09-14 17:00] VITALS: BP 128/77
[2018-09-14] MEDS: HALOPERIDOL 10 MG TABLET PO SCH (20:35)
[2018-09-15 03:00] VITALS: BP 127/70
[2018-09-15] MEDS: CINACALCET HCL 30 MG TABLET PO SCH (06:57)
[2018-09-15 08:10] VITALS: BP 145/92
[2018-09-15] MEDS: HALOPERIDOL 5 MG TABLET PO PRN (08:28)
[2018-09-15] MEDS: LevETIRAcetam 500 MG TABLET PO SCH ×2 (08:28→16:35)
[2018-09-15] MEDS: DIVALPROEX SODIUM 500 MG DR TABLET PO SCH ×2 (08:28→20:00)
[2018-09-15] MEDS: FLUTICASONE/VILANTEROL 200-25 MCG/INH INHALER [14] IH SCH (08:28)
[2018-09-15] MEDS: LORazepam 2 MG TABLET PO PRN (08:28)
[2018-09-15] MEDS: CHOLECALCIFEROL (VIT D3) 400 UNITS TABLET PO SCH ×2 (08:28→16:35)
[2018-09-15] MEDS: CloZAPine 100 MG TABLET PO SCH ×2 (08:28→20:00)
[2018-09-15 18:46] VITALS: BP 133/84
[2018-09-15] MEDS: HALOPERIDOL 10 MG TABLET PO SCH (20:00)
[2018-09-15] MEDS: ZOLPIDEM TARTRATE 10 MG TABLET PO PRN (23:00)
[2018-09-16 03:07] VITALS: BP 150/92
[2018-09-16 06:39] LABS: BASOPHILS % (AUTO) 0.4 % (0.0-2.0); EOSINOPHILS % (AUTO) 4.8 % (1.0-6.0); HEMATOCRIT 43.8 % (41-53); HEMOGLOBIN 14.9 g/dL (13.5-17.5); LYMPHOCYTES # (AUTO) 2.4 K/uL (1.0-4.8); LYMPHOCYTES % (AUTO) 26.2 % (22.0-44.0); MEAN CORPUSCULAR HEMOGLOBIN 31.1 pg (26.0-34.0); MEAN CORPUSCULAR HGB CONC 34.1 G/dL (31.0-37.0); MEAN CORPUSCULAR VOLUME 91 fL (80-100); MONOCYTES # (AUTO) 0.8 K/uL (0.1-1.0); MONOCYTES % (AUTO) 9.3 % (2.0-9.0); NEUTROPHILS # (AUTO) 5.4 K/uL (1.8-7.7); NEUTROPHILS % (AUTO) 59.3 % (40.0-70.0); PLATELET COUNT (AUTO) 114 K/uL (150-450); RED BLOOD CELL COUNT(AUTO) 4.79 MIL/uL (4.50-5.90); RED CELL DISTRIBUTION WIDTH 13.5 % (11.5-14.5)
[2018-09-16] MEDS: CINACALCET HCL 30 MG TABLET PO SCH (07:16)
[2018-09-16 08:15] VITALS: BP 140/98
[2018-09-16] MEDS: FLUTICASONE/VILANTEROL 200-25 MCG/INH INHALER [14] IH SCH (08:22)
[2018-09-16] MEDS: LevETIRAcetam 500 MG TABLET PO SCH ×2 (08:23→16:57)
[2018-09-16] MEDS: DIVALPROEX SODIUM 500 MG DR TABLET PO SCH ×2 (08:23→20:25)
[2018-09-16] MEDS: HALOPERIDOL 5 MG TABLET PO PRN (08:23)
[2018-09-16] MEDS: CloZAPine 100 MG TABLET PO SCH ×2 (08:23→20:25)
[2018-09-16] MEDS: CHOLECALCIFEROL (VIT D3) 400 UNITS TABLET PO SCH ×2 (08:24→16:57)
[2018-09-16] MEDS: LORazepam 2 MG TABLET PO PRN (08:24)
[2018-09-16 18:45] VITALS: BP 114/85
[2018-09-16] MEDS: HALOPERIDOL 10 MG TABLET PO SCH (20:25)
[2018-09-17 05:09] VITALS: BP 144/98
[2018-09-17] MEDS: IBUPROFEN 400 MG TABLET PO PRN (05:16)
[2018-09-17] MEDS: CINACALCET HCL 30 MG TABLET PO SCH (06:32)
[2018-09-17] MEDS: FLUTICASONE/VILANTEROL 200-25 MCG/INH INHALER [14] IH SCH (08:17)
[2018-09-17] MEDS: HALOPERIDOL 5 MG TABLET PO PRN (08:18)
[2018-09-17] MEDS: LevETIRAcetam 500 MG TABLET PO SCH ×2 (08:19→16:18)
[2018-09-17] MEDS: CloZAPine 100 MG TABLET PO SCH ×2 (08:19→20:04)
[2018-09-17] MEDS: CHOLECALCIFEROL (VIT D3) 400 UNITS TABLET PO SCH ×2 (08:19→16:18)
[2018-09-17] MEDS: DIVALPROEX SODIUM 500 MG DR TABLET PO SCH ×2 (08:21→20:04)
[2018-09-17 09:37] VITALS: BP 130/71
[2018-09-17 16:25] VITALS: BP 129/83
[2018-09-17] MEDS: HALOPERIDOL 10 MG TABLET PO SCH (20:05)
[2018-09-18 00:52] VITALS: BP 141/76
[2018-09-18] MEDS: ZOLPIDEM TARTRATE 10 MG TABLET PO PRN (00:52)
[2018-09-18] MEDS: CINACALCET HCL 30 MG TABLET PO SCH (07:18)
[2018-09-18 08:22] VITALS: BP 127/70
[2018-09-18] MEDS: CloZAPine 100 MG TABLET PO SCH ×2 (08:40→20:09)
[2018-09-18] MEDS: FLUTICASONE/VILANTEROL 200-25 MCG/INH INHALER [14] IH SCH (08:40)
[2018-09-18] MEDS: DIVALPROEX SODIUM 500 MG DR TABLET PO SCH ×2 (08:40→20:09)
[2018-09-18] MEDS: LevETIRAcetam 500 MG TABLET PO SCH ×2 (08:40→16:22)
[2018-09-18] MEDS: CHOLECALCIFEROL (VIT D3) 400 UNITS TABLET PO SCH ×2 (08:40→16:22)
[2018-09-18 17:01] VITALS: BP 132/86
[2018-09-18] MEDS: HALOPERIDOL 10 MG TABLET PO SCH (20:08)
[2018-09-19] MEDS: CINACALCET HCL 30 MG TABLET PO SCH (07:11)
[2018-09-19] MEDS: FLUTICASONE/VILANTEROL 200-25 MCG/INH INHALER [14] IH SCH (09:01)
[2018-09-19] MEDS: CloZAPine 100 MG TABLET PO SCH ×2 (09:02→20:17)
[2018-09-19] MEDS: DIVALPROEX SODIUM 500 MG DR TABLET PO SCH ×2 (09:03→20:17)
[2018-09-19] MEDS: LevETIRAcetam 500 MG TABLET PO SCH ×2 (09:03→16:10)
[2018-09-19] MEDS: CHOLECALCIFEROL (VIT D3) 400 UNITS TABLET PO SCH ×2 (09:03→16:10)
[2018-09-19 09:55] VITALS: BP 103/70
[2018-09-19 17:55] VITALS: BP 121/74
[2018-09-19] MEDS: HALOPERIDOL 10 MG TABLET PO SCH (20:17)
[2018-09-20] MEDS: CINACALCET HCL 30 MG TABLET PO SCH (06:32)
[2018-09-20] MEDS: FLUTICASONE/VILANTEROL 200-25 MCG/INH INHALER [14] IH SCH (08:34)
[2018-09-20] MEDS: DIVALPROEX SODIUM 500 MG DR TABLET PO SCH ×2 (08:35→20:23)
[2018-09-20] MEDS: CHOLECALCIFEROL (VIT D3) 400 UNITS TABLET PO SCH ×2 (08:35→16:33)
[2018-09-20] MEDS: LevETIRAcetam 500 MG TABLET PO SCH ×2 (08:35→16:33)
[2018-09-20] MEDS: CloZAPine 100 MG TABLET PO SCH ×2 (08:35→20:23)
[2018-09-20 09:31] VITALS: BP 143/87
[2018-09-20] MEDS: HALOPERIDOL 5 MG TABLET PO PRN (16:32)
[2018-09-20] MEDS: LORazepam 2 MG TABLET PO PRN (16:32)
[2018-09-20 17:13] VITALS: BP 165/82
[2018-09-20] MEDS: HALOPERIDOL 10 MG TABLET PO SCH (20:22)
[2018-09-21] MEDS: CINACALCET HCL 30 MG TABLET PO SCH (06:31)
[2018-09-21] MEDS: CHOLECALCIFEROL (VIT D3) 400 UNITS TABLET PO SCH ×2 (08:21→16:21)
[2018-09-21] MEDS: CloZAPine 100 MG TABLET PO SCH ×2 (08:21→20:24)
[2018-09-21] MEDS: LevETIRAcetam 500 MG TABLET PO SCH ×2 (08:21→16:21)
[2018-09-21] MEDS: FLUTICASONE/VILANTEROL 200-25 MCG/INH INHALER [14] IH SCH (08:21)
[2018-09-21] MEDS: DIVALPROEX SODIUM 500 MG DR TABLET PO SCH ×2 (08:21→20:48)
[2018-09-21 09:25] VITALS: BP 135/80
[2018-09-21] MEDS: HALOPERIDOL 5 MG TABLET PO PRN (12:11)
[2018-09-21] MEDS: LORazepam 2 MG TABLET PO PRN (12:11)
[2018-09-21 16:15] VITALS: BP 128/83
[2018-09-21] MEDS: IBUPROFEN 400 MG TABLET PO PRN (16:21)
[2018-09-21] MEDS: HALOPERIDOL 10 MG TABLET PO SCH (20:48)
[2018-09-22] MEDS: NICOTINE 14 MG/24 HOUR PATCH TD PRN (06:14)
[2018-09-22] MEDS: CINACALCET HCL 30 MG TABLET PO SCH (06:50)
[2018-09-22] MEDS: CloZAPine 100 MG TABLET PO SCH ×2 (08:40→20:31)
[2018-09-22] MEDS: CHOLECALCIFEROL (VIT D3) 400 UNITS TABLET PO SCH ×2 (08:40→16:18)
[2018-09-22] MEDS: DIVALPROEX SODIUM 500 MG DR TABLET PO SCH ×2 (08:40→20:30)
[2018-09-22] MEDS: FLUTICASONE/VILANTEROL 200-25 MCG/INH INHALER [14] IH SCH (08:40)
[2018-09-22] MEDS: LevETIRAcetam 500 MG TABLET PO SCH ×2 (08:40→16:18)
[2018-09-22] MEDS: HALOPERIDOL 5 MG TABLET PO PRN (09:40)
[2018-09-22] MEDS: LORazepam 2 MG TABLET PO PRN (09:40)
[2018-09-22 10:15] VITALS: BP 122/78
[2018-09-22 12:40] VITALS: BP 129/77
[2018-09-22] MEDS: IBUPROFEN 400 MG TABLET PO PRN (12:45)
[2018-09-22 13:45] VITALS: BP 128/82
[2018-09-22] MEDS: HALOPERIDOL 10 MG TABLET PO SCH (20:30)
[2018-09-23 07:10] LABS: BASOPHILS % (AUTO) 0.4 % (0.0-2.0); HEMATOCRIT 42.5 % (41-53); HEMOGLOBIN 14.1 g/dL (13.5-17.5); LYMPHOCYTES # (AUTO) 1.5 K/uL (1.0-4.8); LYMPHOCYTES % (AUTO) 24.7 % (22.0-44.0); MEAN CORPUSCULAR HEMOGLOBIN 30.8 pg (26.0-34.0); MEAN CORPUSCULAR HGB CONC 33.2 G/dL (31.0-37.0); MEAN CORPUSCULAR VOLUME 93 fL (80-100); MONOCYTES # (AUTO) 0.6 K/uL (0.1-1.0); MONOCYTES % (AUTO) 9.1 % (2.0-9.0); NEUTROPHILS # (AUTO) 3.7 K/uL (1.8-7.7); NEUTROPHILS % (AUTO) 59.8 % (40.0-70.0); PLATELET COUNT (AUTO) 111 K/uL (150-450); RED BLOOD CELL COUNT(AUTO) 4.59 MIL/uL (4.50-5.90); RED CELL DISTRIBUTION WIDTH 13.7 % (11.5-14.5)
[2018-09-23] MEDS: FLUTICASONE/VILANTEROL 200-25 MCG/INH INHALER [14] IH SCH (08:17)
[2018-09-23] MEDS: DIVALPROEX SODIUM 500 MG DR TABLET PO SCH ×2 (08:18→20:45)
[2018-09-23] MEDS: CINACALCET HCL 30 MG TABLET PO SCH (08:18)
[2018-09-23] MEDS: CloZAPine 100 MG TABLET PO SCH ×2 (08:18→20:45)
[2018-09-23] MEDS: LORazepam 2 MG TABLET PO PRN (08:18)
[2018-09-23] MEDS: HALOPERIDOL 5 MG TABLET PO PRN (08:18)
[2018-09-23] MEDS: LevETIRAcetam 500 MG TABLET PO SCH ×2 (08:18→16:29)
[2018-09-23] MEDS: CHOLECALCIFEROL (VIT D3) 400 UNITS TABLET PO SCH ×2 (08:19→16:30)
[2018-09-23 10:35] VITALS: BP 138/87
[2018-09-23 16:58] VITALS: BP 129/81
[2018-09-23] MEDS: HALOPERIDOL 10 MG TABLET PO SCH (20:45)
[2018-09-24 06:00] VITALS: BP 134/88
[2018-09-24] MEDS: IBUPROFEN 400 MG TABLET PO PRN (06:06)
[2018-09-24] MEDS: HALOPERIDOL 5 MG TABLET PO PRN (08:19)
[2018-09-24] MEDS: LORazepam 2 MG TABLET PO PRN (08:19)
[2018-09-24] MEDS: CloZAPine 100 MG TABLET PO SCH ×2 (08:21→20:06)
[2018-09-24] MEDS: LevETIRAcetam 500 MG TABLET PO SCH ×2 (08:21→16:39)
[2018-09-24] MEDS: CHOLECALCIFEROL (VIT D3) 400 UNITS TABLET PO SCH ×2 (08:22→16:39)
[2018-09-24] MEDS: DIVALPROEX SODIUM 500 MG DR TABLET PO SCH ×2 (08:22→20:06)
[2018-09-24] MEDS: FLUTICASONE/VILANTEROL 200-25 MCG/INH INHALER [14] IH SCH (08:23)
[2018-09-24 10:10] VITALS: BP 117/90
[2018-09-24] MEDS: CINACALCET HCL 30 MG TABLET PO SCH (11:07)
[2018-09-24 16:45] VITALS: BP 129/84
[2018-09-24] MEDS: HALOPERIDOL 10 MG TABLET PO SCH (20:06)
[2018-09-24] MEDS: LOPERAMIDE HCL 2 MG CAPSULE PO PRN (22:39)
[2018-09-25] MEDS: HALOPERIDOL 5 MG TABLET PO PRN (05:55)
[2018-09-25] MEDS: CINACALCET HCL 30 MG TABLET PO SCH (07:05)
[2018-09-25] MEDS: LevETIRAcetam 500 MG TABLET PO SCH ×2 (10:00→16:07)
[2018-09-25] MEDS: DIVALPROEX SODIUM 500 MG DR TABLET PO SCH ×2 (10:00→20:30)
[2018-09-25] MEDS: FLUTICASONE/VILANTEROL 200-25 MCG/INH INHALER [14] IH SCH (10:00)
[2018-09-25] MEDS: CloZAPine 100 MG TABLET PO SCH ×2 (10:01→20:30)
[2018-09-25] MEDS: CHOLECALCIFEROL (VIT D3) 400 UNITS TABLET PO SCH ×2 (10:01→16:07)
[2018-09-25 10:29] VITALS: BP 118/82
[2018-09-25 17:13] VITALS: BP 139/92
[2018-09-25] MEDS: HALOPERIDOL 10 MG TABLET PO SCH (20:30)
[2018-09-26] MEDS: CINACALCET HCL 30 MG TABLET PO SCH (06:53)
[2018-09-26] MEDS: IBUPROFEN 400 MG TABLET PO PRN (07:08)
[2018-09-26 08:00] VITALS: BP 131/80
[2018-09-26] MEDS: LevETIRAcetam 500 MG TABLET PO SCH ×2 (08:32→16:43)
[2018-09-26] MEDS: CloZAPine 100 MG TABLET PO SCH ×2 (08:32→20:57)
[2018-09-26] MEDS: DIVALPROEX SODIUM 500 MG DR TABLET PO SCH ×2 (08:32→20:56)
[2018-09-26] MEDS: CHOLECALCIFEROL (VIT D3) 400 UNITS TABLET PO SCH ×2 (08:32→20:56)
[2018-09-26] MEDS: FLUTICASONE/VILANTEROL 200-25 MCG/INH INHALER [14] IH SCH (09:00)
[2018-09-26] MEDS: HALOPERIDOL 5 MG TABLET PO PRN (13:07)
[2018-09-26] MEDS: HALOPERIDOL 10 MG TABLET PO SCH (20:56)
[2018-09-27] MEDS: CINACALCET HCL 30 MG TABLET PO SCH (07:04)
[2018-09-27 08:22] VITALS: BP 125/72
[2018-09-27] MEDS: CHOLECALCIFEROL (VIT D3) 400 UNITS TABLET PO SCH ×2 (09:02→16:35)
[2018-09-27] MEDS: CloZAPine 100 MG TABLET PO SCH ×2 (09:03→20:35)
[2018-09-27] MEDS: DIVALPROEX SODIUM 500 MG DR TABLET PO SCH ×2 (09:03→20:36)
[2018-09-27] MEDS: LevETIRAcetam 500 MG TABLET PO SCH ×2 (09:03→16:35)
[2018-09-27] MEDS: FLUTICASONE/VILANTEROL 200-25 MCG/INH INHALER [14] IH SCH (09:03)
[2018-09-27 17:17] VITALS: BP 142/96
[2018-09-27] MEDS: HALOPERIDOL 10 MG TABLET PO SCH (20:36)
[2018-09-28 02:45] VITALS: BP 122/89
[2018-09-28] MEDS: HALOPERIDOL 5 MG TABLET PO PRN ×2 (02:49→09:24)
[2018-09-28] MEDS: CINACALCET HCL 30 MG TABLET PO SCH (07:11)
[2018-09-28] MEDS: CHOLECALCIFEROL (VIT D3) 400 UNITS TABLET PO SCH ×2 (08:00→16:54)
[2018-09-28] MEDS: CloZAPine 100 MG TABLET PO SCH ×2 (08:00→20:14)
[2018-09-28] MEDS: LevETIRAcetam 500 MG TABLET PO SCH ×2 (08:00→16:54)
[2018-09-28] MEDS: DIVALPROEX SODIUM 500 MG DR TABLET PO SCH ×2 (08:01→20:11)
[2018-09-28] MEDS: FLUTICASONE/VILANTEROL 200-25 MCG/INH INHALER [14] IH SCH (08:02)
[2018-09-28 08:59] VITALS: BP 123/77
[2018-09-28] MEDS: DOCUSATE SODIUM 100 MG CAPSULE PO PRN (09:18)
[2018-09-28 17:38] VITALS: BP 161/99
[2018-09-28] MEDS: HALOPERIDOL 10 MG TABLET PO SCH (20:07)
[2018-09-28] MEDS: LOPERAMIDE HCL 2 MG CAPSULE PO PRN (20:11)
[2018-09-29 00:05] VITALS: BP 123/78
[2018-09-29] MEDS: CINACALCET HCL 30 MG TABLET PO SCH (06:59)
[2018-09-29] MEDS: LOPERAMIDE HCL 2 MG CAPSULE PO PRN (07:09)
[2018-09-29] MEDS: CloZAPine 100 MG TABLET PO SCH ×2 (07:53→20:12)
[2018-09-29] MEDS: FLUTICASONE/VILANTEROL 200-25 MCG/INH INHALER [14] IH SCH (07:53)
[2018-09-29] MEDS: LevETIRAcetam 500 MG TABLET PO SCH ×2 (07:54→16:21)
[2018-09-29] MEDS: DIVALPROEX SODIUM 500 MG DR TABLET PO SCH ×2 (07:54→20:11)
[2018-09-29] MEDS: CHOLECALCIFEROL (VIT D3) 400 UNITS TABLET PO SCH ×2 (07:54→16:21)
[2018-09-29 08:00] VITALS: BP 133/85
[2018-09-29] MEDS: HALOPERIDOL 10 MG TABLET PO SCH (20:11)
[2018-09-30] MEDS: CINACALCET HCL 30 MG TABLET PO SCH (06:45)
[2018-09-30] MEDS: LevETIRAcetam 500 MG TABLET PO SCH ×2 (08:07→16:00)
[2018-09-30] MEDS: CHOLECALCIFEROL (VIT D3) 400 UNITS TABLET PO SCH ×2 (08:07→17:19)
[2018-09-30] MEDS: DIVALPROEX SODIUM 500 MG DR TABLET PO SCH ×2 (08:07→20:06)
[2018-09-30] MEDS: CloZAPine 100 MG TABLET PO SCH ×2 (08:08→20:06)
[2018-09-30] MEDS: FLUTICASONE/VILANTEROL 200-25 MCG/INH INHALER [14] IH SCH (08:12)
[2018-09-30] MEDS: HALOPERIDOL 5 MG TABLET PO PRN ×2 (08:38→16:01)
[2018-09-30 08:53] LABS: BASOPHILS % (AUTO) 0.2 % (0.0-2.0); EOSINOPHILS % (AUTO) 3.8 % (1.0-6.0); HEMATOCRIT 43.3 % (41-53); HEMOGLOBIN 14.8 g/dL (13.5-17.5); LYMPHOCYTES # (AUTO) 1.7 K/uL (1.0-4.8); LYMPHOCYTES % (AUTO) 20.9 % (22.0-44.0); MEAN CORPUSCULAR HGB CONC 34.3 G/dL (31.0-37.0); MEAN CORPUSCULAR VOLUME 91 fL (80-100); MONOCYTES # (AUTO) 0.4 K/uL (0.1-1.0); MONOCYTES % (AUTO) 5.4 % (2.0-9.0); NEUTROPHILS # (AUTO) 5.5 K/uL (1.8-7.7); NEUTROPHILS % (AUTO) 69.7 % (40.0-70.0); PLATELET COUNT (AUTO) 105 K/uL (150-450); RED BLOOD CELL COUNT(AUTO) 4.78 MIL/uL (4.50-5.90); RED CELL DISTRIBUTION WIDTH 13.6 % (11.5-14.5)
[2018-09-30 10:38] VITALS: BP 145/94
[2018-09-30 16:20] VITALS: BP 145/76
[2018-09-30] MEDS: HALOPERIDOL 10 MG TABLET PO SCH (20:07)
[2018-10-01] MEDS: HALOPERIDOL 5 MG TABLET PO PRN (05:21)
[2018-10-01] MEDS: CINACALCET HCL 30 MG TABLET PO SCH (06:09)
[2018-10-01] MEDS: ACETAMINOPHEN 325 MG TABLET PO PRN (06:49)
[2018-10-01 06:53] VITALS: BP 132/78
[2018-10-01] MEDS: CHOLECALCIFEROL (VIT D3) 400 UNITS TABLET PO SCH ×2 (08:21→16:09)
[2018-10-01] MEDS: DIVALPROEX SODIUM 500 MG DR TABLET PO SCH ×2 (08:21→20:11)
[2018-10-01] MEDS: CloZAPine 100 MG TABLET PO SCH ×2 (08:21→20:10)
[2018-10-01] MEDS: LevETIRAcetam 500 MG TABLET PO SCH ×2 (08:21→16:09)
[2018-10-01] MEDS: FLUTICASONE/VILANTEROL 200-25 MCG/INH INHALER [14] IH SCH (08:25)
[2018-10-01 10:17] VITALS: BP 128/79
[2018-10-01 16:51] VITALS: BP 137/90
[2018-10-01] MEDS: HALOPERIDOL 10 MG TABLET PO SCH (20:10)
[2018-10-02 05:15] VITALS: BP 134/87
[2018-10-02] MEDS: IBUPROFEN 400 MG TABLET PO PRN (05:16)
[2018-10-02] MEDS: CINACALCET HCL 30 MG TABLET PO SCH (06:32)
[2018-10-02] MEDS: CHOLECALCIFEROL (VIT D3) 400 UNITS TABLET PO SCH ×2 (08:32→16:41)
[2018-10-02] MEDS: CloZAPine 100 MG TABLET PO SCH ×2 (08:33→20:31)
[2018-10-02] MEDS: LevETIRAcetam 500 MG TABLET PO SCH ×2 (08:33→16:41)
[2018-10-02] MEDS: DIVALPROEX SODIUM 500 MG DR TABLET PO SCH ×2 (08:33→20:31)
[2018-10-02] MEDS: FLUTICASONE/VILANTEROL 200-25 MCG/INH INHALER [14] IH SCH (08:34)
[2018-10-02 09:04] VITALS: BP 116/76
[2018-10-02 17:16] VITALS: BP 126/86
[2018-10-02] MEDS: HALOPERIDOL 10 MG TABLET PO SCH (20:31)
[2018-10-03] MEDS: LOPERAMIDE HCL 2 MG CAPSULE PO PRN (04:46)
[2018-10-03 04:53] VITALS: BP 120/78
[2018-10-03] MEDS: IBUPROFEN 400 MG TABLET PO PRN (04:58)
[2018-10-03] MEDS: CINACALCET HCL 30 MG TABLET PO SCH (06:56)
[2018-10-03] MEDS: CHOLECALCIFEROL (VIT D3) 400 UNITS TABLET PO SCH ×2 (08:06→16:30)
[2018-10-03] MEDS: DIVALPROEX SODIUM 500 MG DR TABLET PO SCH ×2 (08:06→20:08)
[2018-10-03] MEDS: LevETIRAcetam 500 MG TABLET PO SCH ×2 (08:06→16:30)
[2018-10-03] MEDS: CloZAPine 100 MG TABLET PO SCH ×2 (08:06→20:09)
[2018-10-03] MEDS: FLUTICASONE/VILANTEROL 200-25 MCG/INH INHALER [14] IH SCH (08:08)
[2018-10-03 09:47] VITALS: BP 124/83
[2018-10-03] MEDS: HALOPERIDOL 5 MG TABLET PO PRN (12:30)
[2018-10-03] MEDS: HALOPERIDOL 10 MG TABLET PO SCH (20:12)
[2018-10-04] MEDS: CINACALCET HCL 30 MG TABLET PO SCH (06:55)
[2018-10-04] MEDS: FLUTICASONE/VILANTEROL 200-25 MCG/INH INHALER [14] IH SCH (08:15)
[2018-10-04] MEDS: CHOLECALCIFEROL (VIT D3) 400 UNITS TABLET PO SCH ×2 (08:16→16:01)
[2018-10-04] MEDS: CloZAPine 100 MG TABLET PO SCH ×2 (08:16→20:02)
[2018-10-04] MEDS: DIVALPROEX SODIUM 500 MG DR TABLET PO SCH ×2 (08:16→20:03)
[2018-10-04] MEDS: LevETIRAcetam 500 MG TABLET PO SCH ×2 (08:16→16:01)
[2018-10-04 09:18] VITALS: BP 118/73
[2018-10-04] MEDS: HALOPERIDOL 5 MG TABLET PO PRN (13:07)
[2018-10-04 16:30] VITALS: BP 128/73
[2018-10-04] MEDS: HALOPERIDOL 10 MG TABLET PO SCH (20:02)
[2018-10-05 03:51] VITALS: BP 127/91
[2018-10-05] MEDS: LOPERAMIDE HCL 2 MG CAPSULE PO PRN (06:31)
[2018-10-05] MEDS: CINACALCET HCL 30 MG TABLET PO SCH (07:00)
[2018-10-05 08:00] VITALS: BP 119/81
[2018-10-05] MEDS: FLUTICASONE/VILANTEROL 200-25 MCG/INH INHALER [14] IH SCH (09:00)
[2018-10-05] MEDS: CloZAPine 100 MG TABLET PO SCH ×2 (09:02→21:03)
[2018-10-05] MEDS: DIVALPROEX SODIUM 500 MG DR TABLET PO SCH ×2 (09:02→21:03)
[2018-10-05] MEDS: CHOLECALCIFEROL (VIT D3) 400 UNITS TABLET PO SCH ×2 (09:02→16:40)
[2018-10-05] MEDS: LevETIRAcetam 500 MG TABLET PO SCH ×2 (09:02→16:40)
[2018-10-05 16:15] VITALS: BP 133/83
[2018-10-05] MEDS: HALOPERIDOL 10 MG TABLET PO SCH (21:03)
[2018-10-06] MEDS: CINACALCET HCL 30 MG TABLET PO SCH (06:52)
[2018-10-06] MEDS: LevETIRAcetam 500 MG TABLET PO SCH ×2 (08:42→16:17)
[2018-10-06] MEDS: CloZAPine 100 MG TABLET PO SCH ×2 (08:43→20:30)
[2018-10-06] MEDS: DIVALPROEX SODIUM 500 MG DR TABLET PO SCH ×2 (08:43→20:30)
[2018-10-06] MEDS: CHOLECALCIFEROL (VIT D3) 400 UNITS TABLET PO SCH ×2 (08:43→16:17)
[2018-10-06] MEDS: FLUTICASONE/VILANTEROL 200-25 MCG/INH INHALER [14] IH SCH (08:43)
[2018-10-06 09:17] VITALS: BP 117/78
[2018-10-06] MEDS: HALOPERIDOL 5 MG TABLET PO PRN (10:17)
[2018-10-06 16:36] VITALS: BP 151/68
[2018-10-06] MEDS: HALOPERIDOL 10 MG TABLET PO SCH (20:34)
[2018-10-07 03:48] VITALS: BP 162/98
[2018-10-07] MEDS: CINACALCET HCL 30 MG TABLET PO SCH (07:11)
[2018-10-07] MEDS: LevETIRAcetam 500 MG TABLET PO SCH ×2 (08:47→16:36)
[2018-10-07] MEDS: DIVALPROEX SODIUM 500 MG DR TABLET PO SCH ×2 (08:48→21:56)
[2018-10-07] MEDS: CloZAPine 100 MG TABLET PO SCH ×2 (08:48→21:55)
[2018-10-07] MEDS: FLUTICASONE/VILANTEROL 200-25 MCG/INH INHALER [14] IH SCH (08:49)
[2018-10-07] MEDS: CHOLECALCIFEROL (VIT D3) 400 UNITS TABLET PO SCH ×2 (08:49→16:36)
[2018-10-07 09:00] VITALS: BP 132/87
[2018-10-07 09:53] LABS: BASOPHILS % (AUTO) 0.5 % (0.0-2.0); EOSINOPHILS % (AUTO) 3.7 % (1.0-6.0); HEMATOCRIT 41.7 % (41-53); HEMOGLOBIN 14.2 g/dL (13.5-17.5); LYMPHOCYTES # (AUTO) 1.9 K/uL (1.0-4.8); LYMPHOCYTES % (AUTO) 24.6 % (22.0-44.0); MEAN CORPUSCULAR HGB CONC 33.9 G/dL (31.0-37.0); MEAN CORPUSCULAR VOLUME 92 fL (80-100); MONOCYTES # (AUTO) 0.8 K/uL (0.1-1.0); MONOCYTES % (AUTO) 10.1 % (2.0-9.0); NEUTROPHILS # (AUTO) 4.7 K/uL (1.8-7.7); NEUTROPHILS % (AUTO) 61.1 % (40.0-70.0); PLATELET COUNT (AUTO) 107 K/uL (150-450); RED BLOOD CELL COUNT(AUTO) 4.56 MIL/uL (4.50-5.90); RED CELL DISTRIBUTION WIDTH 13.6 % (11.5-14.5)
[2018-10-07] MEDS: HALOPERIDOL 5 MG TABLET PO PRN (17:43)
[2018-10-07 21:38] VITALS: BP 148/79
[2018-10-07] MEDS: HALOPERIDOL 10 MG TABLET PO SCH (21:56)
[2018-10-08] MEDS: CINACALCET HCL 30 MG TABLET PO SCH (06:45)
[2018-10-08] MEDS: DIVALPROEX SODIUM 500 MG DR TABLET PO SCH ×2 (08:14→21:26)
[2018-10-08] MEDS: CHOLECALCIFEROL (VIT D3) 400 UNITS TABLET PO SCH ×2 (08:15→16:37)
[2018-10-08] MEDS: LevETIRAcetam 500 MG TABLET PO SCH ×2 (08:15→16:37)
[2018-10-08] MEDS: CloZAPine 100 MG TABLET PO SCH ×2 (08:15→21:25)
[2018-10-08] MEDS: FLUTICASONE/VILANTEROL 200-25 MCG/INH INHALER [14] IH SCH (08:15)
[2018-10-08 09:00] VITALS: BP 127/83
[2018-10-08] MEDS: HALOPERIDOL 5 MG TABLET PO PRN (14:35)
[2018-10-08 17:00] VITALS: BP 155/94
[2018-10-08] MEDS: HALOPERIDOL 10 MG TABLET PO SCH (21:25)
[2018-10-09] MEDS: CINACALCET HCL 30 MG TABLET PO SCH (07:21)
[2018-10-09] MEDS: DIVALPROEX SODIUM 500 MG DR TABLET PO SCH ×2 (08:00→20:36)
[2018-10-09] MEDS: CHOLECALCIFEROL (VIT D3) 400 UNITS TABLET PO SCH ×2 (08:00→17:15)
[2018-10-09] MEDS: LevETIRAcetam 500 MG TABLET PO SCH ×2 (08:00→17:15)
[2018-10-09] MEDS: CloZAPine 100 MG TABLET PO SCH ×2 (08:00→20:36)
[2018-10-09] MEDS: HALOPERIDOL 5 MG TABLET PO PRN (08:01)
[2018-10-09] MEDS: FLUTICASONE/VILANTEROL 200-25 MCG/INH INHALER [14] IH SCH (08:01)
[2018-10-09 08:30] VITALS: BP 127/74
[2018-10-09 17:59] VITALS: BP 155/86
[2018-10-09] MEDS: HALOPERIDOL 10 MG TABLET PO SCH (20:36)
[2018-10-10] MEDS: CINACALCET HCL 30 MG TABLET PO SCH (06:40)
[2018-10-10 07:00] VITALS: BP 108/72
[2018-10-10] MEDS: IBUPROFEN 400 MG TABLET PO PRN (07:03)
[2018-10-10] MEDS: FLUTICASONE/VILANTEROL 200-25 MCG/INH INHALER [14] IH SCH (08:59)
[2018-10-10] MEDS: DIVALPROEX SODIUM 500 MG DR TABLET PO SCH ×2 (09:00→20:18)
[2018-10-10] MEDS: LevETIRAcetam 500 MG TABLET PO SCH ×2 (09:00→15:52)
[2018-10-10] MEDS: CHOLECALCIFEROL (VIT D3) 400 UNITS TABLET PO SCH ×2 (09:00→15:52)
[2018-10-10] MEDS: CloZAPine 100 MG TABLET PO SCH ×2 (09:00→20:19)
[2018-10-10 09:24] VITALS: BP 113/75
[2018-10-10] MEDS: LOPERAMIDE HCL 2 MG CAPSULE PO PRN (16:03)
[2018-10-10] MEDS: HALOPERIDOL 10 MG TABLET PO SCH (20:18)
[2018-10-11] MEDS: CINACALCET HCL 30 MG TABLET PO SCH (06:39)
[2018-10-11] MEDS: CloZAPine 100 MG TABLET PO SCH ×2 (07:43→20:13)
[2018-10-11] MEDS: DIVALPROEX SODIUM 500 MG DR TABLET PO SCH ×2 (07:44→20:15)
[2018-10-11] MEDS: LevETIRAcetam 500 MG TABLET PO SCH ×2 (07:44→16:05)
[2018-10-11] MEDS: CHOLECALCIFEROL (VIT D3) 400 UNITS TABLET PO SCH ×2 (07:44→16:05)
[2018-10-11] MEDS: FLUTICASONE/VILANTEROL 200-25 MCG/INH INHALER [14] IH SCH (07:46)
[2018-10-11 08:50] VITALS: BP 133/68
[2018-10-11] MEDS: HALOPERIDOL 5 MG TABLET PO PRN (16:05)
[2018-10-11 17:00] VITALS: BP 153/94
[2018-10-11] MEDS: HALOPERIDOL 10 MG TABLET PO SCH (20:13)
[2018-10-12 04:54] VITALS: BP 143/97
[2018-10-12] MEDS: CINACALCET HCL 30 MG TABLET PO SCH (06:33)
[2018-10-12] MEDS: HALOPERIDOL 5 MG TABLET PO PRN ×2 (08:22→16:12)
[2018-10-12] MEDS: LevETIRAcetam 500 MG TABLET PO SCH ×2 (08:22→16:12)
[2018-10-12] MEDS: DIVALPROEX SODIUM 500 MG DR TABLET PO SCH ×2 (08:23→21:24)
[2018-10-12] MEDS: CHOLECALCIFEROL (VIT D3) 400 UNITS TABLET PO SCH ×2 (08:23→16:12)
[2018-10-12] MEDS: CloZAPine 100 MG TABLET PO SCH ×2 (08:23→21:23)
[2018-10-12] MEDS: FLUTICASONE/VILANTEROL 200-25 MCG/INH INHALER [14] IH SCH (08:26)
[2018-10-12 08:32] VITALS: BP 129/92
[2018-10-12 16:00] VITALS: BP 135/84
[2018-10-12] MEDS: HALOPERIDOL 10 MG TABLET PO SCH (21:24)
[2018-10-13 02:08] VITALS: BP 150/90
[2018-10-13] MEDS: CINACALCET HCL 30 MG TABLET PO SCH (07:01)
[2018-10-13] MEDS: CloZAPine 100 MG TABLET PO SCH ×2 (08:01→20:23)
[2018-10-13] MEDS: DIVALPROEX SODIUM 500 MG DR TABLET PO SCH ×2 (08:02→20:23)
[2018-10-13] MEDS: FLUTICASONE/VILANTEROL 200-25 MCG/INH INHALER [14] IH SCH (08:02)
[2018-10-13] MEDS: LevETIRAcetam 500 MG TABLET PO SCH ×2 (08:02→16:27)
[2018-10-13] MEDS: CHOLECALCIFEROL (VIT D3) 400 UNITS TABLET PO SCH ×2 (08:02→16:27)
[2018-10-13 08:31] VITALS: BP 130/66
[2018-10-13 16:50] VITALS: BP 146/87
[2018-10-13] MEDS: HALOPERIDOL 10 MG TABLET PO SCH (20:23)
[2018-10-14 04:09] VITALS: BP 129/88
[2018-10-14 06:11] LABS: BASOPHILS % (AUTO) 0.3 % (0.0-2.0); EOSINOPHILS % (AUTO) 5.4 % (1.0-6.0); HEMATOCRIT 43.6 % (41-53); HEMOGLOBIN 14.7 g/dL (13.5-17.5); LYMPHOCYTES # (AUTO) 2.6 K/uL (1.0-4.8); LYMPHOCYTES % (AUTO) 34.3 % (22.0-44.0); MEAN CORPUSCULAR HEMOGLOBIN 30.9 pg (26.0-34.0); MEAN CORPUSCULAR HGB CONC 33.7 G/dL (31.0-37.0); MEAN CORPUSCULAR VOLUME 92 fL (80-100); MONOCYTES # (AUTO) 0.7 K/uL (0.1-1.0); MONOCYTES % (AUTO) 8.9 % (2.0-9.0); NEUTROPHILS # (AUTO) 3.9 K/uL (1.8-7.7); NEUTROPHILS % (AUTO) 51.1 % (40.0-70.0); PLATELET COUNT (AUTO) 110 K/uL (150-450); RED BLOOD CELL COUNT(AUTO) 4.76 MIL/uL (4.50-5.90); RED CELL DISTRIBUTION WIDTH 13.7 % (11.5-14.5)
[2018-10-14] MEDS: CINACALCET HCL 30 MG TABLET PO SCH (06:50)
[2018-10-14 08:15] VITALS: BP 137/85
[2018-10-14] MEDS: CloZAPine 100 MG TABLET PO SCH ×2 (08:25→19:58)
[2018-10-14] MEDS: DIVALPROEX SODIUM 500 MG DR TABLET PO SCH ×2 (08:25→19:58)
[2018-10-14] MEDS: CHOLECALCIFEROL (VIT D3) 400 UNITS TABLET PO SCH ×2 (08:25→16:11)
[2018-10-14] MEDS: LevETIRAcetam 500 MG TABLET PO SCH ×2 (08:26→16:10)
[2018-10-14] MEDS: FLUTICASONE/VILANTEROL 200-25 MCG/INH INHALER [14] IH SCH (08:28)
[2018-10-14] MEDS: HALOPERIDOL 5 MG TABLET PO PRN ×2 (12:38→16:46)
[2018-10-14] MEDS: ACETAMINOPHEN 325 MG TABLET PO PRN (16:46)
[2018-10-14 16:47] VITALS: BP 122/75
[2018-10-14] MEDS: HALOPERIDOL 10 MG TABLET PO SCH (19:58)
[2018-10-15] MEDS: CINACALCET HCL 30 MG TABLET PO SCH (07:05)
[2018-10-15] MEDS: FLUTICASONE/VILANTEROL 200-25 MCG/INH INHALER [14] IH SCH (08:06)
[2018-10-15] MEDS: CloZAPine 100 MG TABLET PO SCH ×2 (08:06→20:00)
[2018-10-15] MEDS: DIVALPROEX SODIUM 500 MG DR TABLET PO SCH ×2 (08:06→20:00)
[2018-10-15] MEDS: CHOLECALCIFEROL (VIT D3) 400 UNITS TABLET PO SCH ×2 (08:08→16:23)
[2018-10-15] MEDS: LevETIRAcetam 500 MG TABLET PO SCH ×2 (08:08→16:23)
[2018-10-15] MEDS: HALOPERIDOL 5 MG TABLET PO PRN (08:10)
[2018-10-15 16:00] VITALS: BP 132/79
[2018-10-15] MEDS: HALOPERIDOL 10 MG TABLET PO SCH (20:00)
[2018-10-16] MEDS: CINACALCET HCL 30 MG TABLET PO SCH (07:10)
[2018-10-16] MEDS: LevETIRAcetam 500 MG TABLET PO SCH ×2 (08:23→16:03)
[2018-10-16] MEDS: DIVALPROEX SODIUM 500 MG DR TABLET PO SCH ×2 (08:23→20:01)
[2018-10-16] MEDS: HALOPERIDOL 5 MG TABLET PO PRN ×2 (08:23→16:03)
[2018-10-16] MEDS: CHOLECALCIFEROL (VIT D3) 400 UNITS TABLET PO SCH ×2 (08:23→16:03)
[2018-10-16] MEDS: CloZAPine 100 MG TABLET PO SCH ×2 (08:24→20:01)
[2018-10-16] MEDS: FLUTICASONE/VILANTEROL 200-25 MCG/INH INHALER [14] IH SCH (08:24)
[2018-10-16 09:40] VITALS: BP 128/89
[2018-10-16 16:33] VITALS: BP 151/99
[2018-10-16 17:08] VITALS: BP 142/82
[2018-10-16] MEDS: IBUPROFEN 400 MG TABLET PO PRN (17:09)
[2018-10-16] MEDS: HALOPERIDOL 10 MG TABLET PO SCH (20:01)
[2018-10-17] MEDS: CINACALCET HCL 30 MG TABLET PO SCH (06:55)
[2018-10-17] MEDS: LevETIRAcetam 500 MG TABLET PO SCH ×2 (08:43→16:35)
[2018-10-17] MEDS: CHOLECALCIFEROL (VIT D3) 400 UNITS TABLET PO SCH ×2 (08:43→16:35)
[2018-10-17] MEDS: FLUTICASONE/VILANTEROL 200-25 MCG/INH INHALER [14] IH SCH (08:43)
[2018-10-17] MEDS: DIVALPROEX SODIUM 500 MG DR TABLET PO SCH ×2 (08:43→20:12)
[2018-10-17] MEDS: CloZAPine 100 MG TABLET PO SCH ×2 (08:44→20:13)
[2018-10-17 09:00] VITALS: BP 125/80
[2018-10-17] MEDS: HALOPERIDOL 10 MG TABLET PO SCH (20:12)
[2018-10-18 04:50] VITALS: BP 140/83
[2018-10-18] MEDS: CINACALCET HCL 30 MG TABLET PO SCH (06:56)
[2018-10-18 08:05] VITALS: BP 118/80
[2018-10-18] MEDS: DIVALPROEX SODIUM 500 MG DR TABLET PO SCH ×2 (08:15→20:36)
[2018-10-18] MEDS: FLUTICASONE/VILANTEROL 200-25 MCG/INH INHALER [14] IH SCH (08:16)
[2018-10-18] MEDS: CHOLECALCIFEROL (VIT D3) 400 UNITS TABLET PO SCH ×2 (08:16→16:01)
[2018-10-18] MEDS: CloZAPine 100 MG TABLET PO SCH ×2 (08:16→20:37)
[2018-10-18] MEDS: LevETIRAcetam 500 MG TABLET PO SCH ×2 (08:18→16:01)
[2018-10-18 17:31] VITALS: BP 151/95
[2018-10-18] MEDS: HALOPERIDOL 10 MG TABLET PO SCH (20:49)
[2018-10-19] MEDS: CINACALCET HCL 30 MG TABLET PO SCH (07:03)
[2018-10-19] MEDS: CloZAPine 100 MG TABLET PO SCH ×2 (08:41→21:05)
[2018-10-19] MEDS: LevETIRAcetam 500 MG TABLET PO SCH ×2 (08:41→16:05)
[2018-10-19] MEDS: FLUTICASONE/VILANTEROL 200-25 MCG/INH INHALER [14] IH SCH (08:41)
[2018-10-19] MEDS: CHOLECALCIFEROL (VIT D3) 400 UNITS TABLET PO SCH ×2 (08:41→16:05)
[2018-10-19] MEDS: DIVALPROEX SODIUM 500 MG DR TABLET PO SCH ×2 (08:41→21:05)
[2018-10-19 09:35] VITALS: BP 114/73
[2018-10-19 16:31] VITALS: BP 134/75
[2018-10-19] MEDS: HALOPERIDOL 10 MG TABLET PO SCH (21:05)
[2018-10-20] MEDS: CINACALCET HCL 30 MG TABLET PO SCH (07:13)
[2018-10-20] MEDS: CHOLECALCIFEROL (VIT D3) 400 UNITS TABLET PO SCH ×2 (08:37→16:17)
[2018-10-20] MEDS: LevETIRAcetam 500 MG TABLET PO SCH ×2 (08:37→16:18)
[2018-10-20] MEDS: DIVALPROEX SODIUM 500 MG DR TABLET PO SCH ×2 (08:37→20:52)
[2018-10-20] MEDS: FLUTICASONE/VILANTEROL 200-25 MCG/INH INHALER [14] IH SCH (08:38)
[2018-10-20] MEDS: CloZAPine 100 MG TABLET PO SCH ×2 (08:38→20:52)
[2018-10-20 09:00] VITALS: BP 119/78
[2018-10-20] MEDS: IBUPROFEN 400 MG TABLET PO PRN (09:01)
[2018-10-20 16:21] VITALS: BP 126/76
[2018-10-20] MEDS: HALOPERIDOL 5 MG TABLET PO PRN (16:37)
[2018-10-20] MEDS: HALOPERIDOL 10 MG TABLET PO SCH (20:52)
[2018-10-21 06:46] LABS: BASOPHILS % (AUTO) 0.3 % (0.0-2.0); EOSINOPHILS % (AUTO) 5.2 % (1.0-6.0); HEMOGLOBIN 14.6 g/dL (13.5-17.5); LYMPHOCYTES # (AUTO) 2.7 K/uL (1.0-4.8); LYMPHOCYTES % (AUTO) 37.7 % (22.0-44.0); MEAN CORPUSCULAR HEMOGLOBIN 30.3 pg (26.0-34.0); MEAN CORPUSCULAR HGB CONC 33.2 G/dL (31.0-37.0); MEAN CORPUSCULAR VOLUME 91 fL (80-100); MONOCYTES # (AUTO) 0.7 K/uL (0.1-1.0); MONOCYTES % (AUTO) 9.9 % (2.0-9.0); NEUTROPHILS # (AUTO) 3.4 K/uL (1.8-7.7); NEUTROPHILS % (AUTO) 46.9 % (40.0-70.0); PLATELET COUNT (AUTO) 106 K/uL (150-450); RED BLOOD CELL COUNT(AUTO) 4.82 MIL/uL (4.50-5.90); RED CELL DISTRIBUTION WIDTH 13.8 % (11.5-14.5)
[2018-10-21] MEDS: CINACALCET HCL 30 MG TABLET PO SCH (06:46)
[2018-10-21] MEDS: DIVALPROEX SODIUM 500 MG DR TABLET PO SCH ×2 (08:22→20:14)
[2018-10-21] MEDS: LevETIRAcetam 500 MG TABLET PO SCH ×2 (08:22→16:10)
[2018-10-21] MEDS: CloZAPine 100 MG TABLET PO SCH ×2 (08:22→20:14)
[2018-10-21] MEDS: CHOLECALCIFEROL (VIT D3) 400 UNITS TABLET PO SCH ×2 (08:22→16:10)
[2018-10-21] MEDS: FLUTICASONE/VILANTEROL 200-25 MCG/INH INHALER [14] IH SCH (08:23)
[2018-10-21 09:42] VITALS: BP 95/72
[2018-10-21] MEDS: IBUPROFEN 400 MG TABLET PO PRN (13:22)
[2018-10-21 13:23] VITALS: BP 149/79
[2018-10-21 14:05] VITALS: BP 130/70
[2018-10-21 19:47] VITALS: BP 131/75
[2018-10-21] MEDS: HALOPERIDOL 10 MG TABLET PO SCH (21:17)
[2018-10-22] MEDS: CINACALCET HCL 30 MG TABLET PO SCH (07:09)
[2018-10-22 08:13] VITALS: BP 127/72
[2018-10-22] MEDS: LevETIRAcetam 500 MG TABLET PO SCH ×2 (08:13→16:28)
[2018-10-22] MEDS: CHOLECALCIFEROL (VIT D3) 400 UNITS TABLET PO SCH ×2 (08:13→16:28)
[2018-10-22] MEDS: CloZAPine 100 MG TABLET PO SCH ×2 (08:13→20:02)
[2018-10-22] MEDS: IBUPROFEN 400 MG TABLET PO PRN (08:13)
[2018-10-22] MEDS: DIVALPROEX SODIUM 500 MG DR TABLET PO SCH ×2 (08:13→20:01)
[2018-10-22] MEDS: FLUTICASONE/VILANTEROL 200-25 MCG/INH INHALER [14] IH SCH (08:14)
[2018-10-22 08:28] VITALS: BP 121/72
[2018-10-22 09:13] VITALS: BP 128/73
[2018-10-22] MEDS: HALOPERIDOL 5 MG TABLET PO PRN (13:07)
[2018-10-22] MEDS: HALOPERIDOL 10 MG TABLET PO SCH (20:02)
[2018-10-22 20:08] VITALS: BP 125/75
[2018-10-23] MEDS: CINACALCET HCL 30 MG TABLET PO SCH (06:53)
[2018-10-23 08:00] VITALS: BP 134/80
[2018-10-23] MEDS: LevETIRAcetam 500 MG TABLET PO SCH ×2 (08:39→16:10)
[2018-10-23] MEDS: DIVALPROEX SODIUM 500 MG DR TABLET PO SCH ×2 (08:39→20:15)
[2018-10-23] MEDS: CHOLECALCIFEROL (VIT D3) 400 UNITS TABLET PO SCH ×2 (08:39→16:10)
[2018-10-23] MEDS: CloZAPine 100 MG TABLET PO SCH ×2 (08:40→20:15)
[2018-10-23] MEDS: FLUTICASONE/VILANTEROL 200-25 MCG/INH INHALER [14] IH SCH (08:44)
[2018-10-23] MEDS: IBUPROFEN 400 MG TABLET PO PRN (13:11)
[2018-10-23 17:00] VITALS: BP 132/80
[2018-10-23] MEDS: HALOPERIDOL 10 MG TABLET PO SCH (20:14)
[2018-10-24] MEDS: CINACALCET HCL 30 MG TABLET PO SCH (06:40)
[2018-10-24] MEDS: LevETIRAcetam 500 MG TABLET PO SCH ×2 (08:10→16:04)
[2018-10-24] MEDS: DIVALPROEX SODIUM 500 MG DR TABLET PO SCH ×2 (08:10→20:04)
[2018-10-24] MEDS: CloZAPine 100 MG TABLET PO SCH ×2 (08:11→20:05)
[2018-10-24] MEDS: CHOLECALCIFEROL (VIT D3) 400 UNITS TABLET PO SCH ×2 (08:11→16:04)
[2018-10-24] MEDS: FLUTICASONE/VILANTEROL 200-25 MCG/INH INHALER [14] IH SCH (08:14)
[2018-10-24 09:38] VITALS: BP 106/76
[2018-10-24 16:17] VITALS: BP 131/71
[2018-10-24] MEDS: HALOPERIDOL 10 MG TABLET PO SCH (20:04)
[2018-10-25] MEDS: CINACALCET HCL 30 MG TABLET PO SCH (07:03)
[2018-10-25] MEDS: CloZAPine 100 MG TABLET PO SCH ×2 (08:26→20:15)
[2018-10-25] MEDS: DIVALPROEX SODIUM 500 MG DR TABLET PO SCH ×2 (08:26→20:15)
[2018-10-25] MEDS: CHOLECALCIFEROL (VIT D3) 400 UNITS TABLET PO SCH ×2 (08:27→16:02)
[2018-10-25] MEDS: LevETIRAcetam 500 MG TABLET PO SCH ×2 (08:27→16:02)
[2018-10-25] MEDS: FLUTICASONE/VILANTEROL 200-25 MCG/INH INHALER [14] IH SCH (08:30)
[2018-10-25 09:44] VITALS: BP 125/75
[2018-10-25 16:44] VITALS: BP 142/97
[2018-10-25] MEDS: HALOPERIDOL 10 MG TABLET PO SCH (20:15)
[2018-10-26] MEDS: CINACALCET HCL 30 MG TABLET PO SCH (07:03)
[2018-10-26 08:43] VITALS: BP 124/82
[2018-10-26] MEDS: DIVALPROEX SODIUM 500 MG DR TABLET PO SCH ×2 (08:44→20:19)
[2018-10-26] MEDS: FLUTICASONE/VILANTEROL 200-25 MCG/INH INHALER [14] IH SCH (08:44)
[2018-10-26] MEDS: CHOLECALCIFEROL (VIT D3) 400 UNITS TABLET PO SCH ×2 (08:44→15:49)
[2018-10-26] MEDS: LevETIRAcetam 500 MG TABLET PO SCH ×2 (08:44→15:49)
[2018-10-26] MEDS: CloZAPine 100 MG TABLET PO SCH ×2 (08:44→20:19)
[2018-10-26 16:57] VITALS: BP 119/82
[2018-10-26] MEDS: HALOPERIDOL 10 MG TABLET PO SCH (20:18)
[2018-10-27] MEDS: CINACALCET HCL 30 MG TABLET PO SCH (07:05)
[2018-10-27] MEDS: DIVALPROEX SODIUM 500 MG DR TABLET PO SCH ×2 (08:08→20:27)
[2018-10-27] MEDS: CloZAPine 100 MG TABLET PO SCH ×2 (08:08→20:27)
[2018-10-27] MEDS: LevETIRAcetam 500 MG TABLET PO SCH ×2 (08:08→16:27)
[2018-10-27] MEDS: CHOLECALCIFEROL (VIT D3) 400 UNITS TABLET PO SCH ×2 (08:08→16:27)
[2018-10-27] MEDS: FLUTICASONE/VILANTEROL 200-25 MCG/INH INHALER [14] IH SCH (08:12)
[2018-10-27 09:44] VITALS: BP 134/67
[2018-10-27 16:53] VITALS: BP 145/93
[2018-10-27] MEDS: HALOPERIDOL 10 MG TABLET PO SCH (20:27)
[2018-10-28 06:50] LABS: BASOPHILS % (AUTO) 0.4 % (0.0-2.0); EOSINOPHILS % (AUTO) 5.9 % (1.0-6.0); HEMATOCRIT 42.4 % (41-53); HEMOGLOBIN 14.3 g/dL (13.5-17.5); LYMPHOCYTES # (AUTO) 2.3 K/uL (1.0-4.8); LYMPHOCYTES % (AUTO) 34.7 % (22.0-44.0); MEAN CORPUSCULAR HEMOGLOBIN 31.2 pg (26.0-34.0); MEAN CORPUSCULAR HGB CONC 33.8 G/dL (31.0-37.0); MEAN CORPUSCULAR VOLUME 92 fL (80-100); MONOCYTES # (AUTO) 0.6 K/uL (0.1-1.0); NEUTROPHILS # (AUTO) 3.3 K/uL (1.8-7.7); PLATELET COUNT (AUTO) 93 K/uL (150-450); RED BLOOD CELL COUNT(AUTO) 4.61 MIL/uL (4.50-5.90); RED CELL DISTRIBUTION WIDTH 13.9 % (11.5-14.5)
[2018-10-28] MEDS: CINACALCET HCL 30 MG TABLET PO SCH (07:03)
[2018-10-28] MEDS: LOPERAMIDE HCL 2 MG CAPSULE PO PRN (08:18)
[2018-10-28] MEDS: LevETIRAcetam 500 MG TABLET PO SCH ×2 (08:18→17:15)
[2018-10-28] MEDS: CloZAPine 100 MG TABLET PO SCH ×2 (08:19→21:06)
[2018-10-28] MEDS: DIVALPROEX SODIUM 500 MG DR TABLET PO SCH ×2 (08:19→21:06)
[2018-10-28] MEDS: CHOLECALCIFEROL (VIT D3) 400 UNITS TABLET PO SCH ×2 (08:19→17:15)
[2018-10-28] MEDS: FLUTICASONE/VILANTEROL 200-25 MCG/INH INHALER [14] IH SCH (08:21)
[2018-10-28 09:16] VITALS: BP 123/87
[2018-10-28] MEDS: HALOPERIDOL 5 MG TABLET PO PRN (10:59)
[2018-10-28 16:35] VITALS: BP 133/78
[2018-10-28] MEDS: HALOPERIDOL 10 MG TABLET PO SCH (21:06)
[2018-10-29] MEDS: CINACALCET HCL 30 MG TABLET PO SCH (07:31)
[2018-10-29] MEDS: DIVALPROEX SODIUM 500 MG DR TABLET PO SCH ×2 (08:30→20:29)
[2018-10-29] MEDS: LevETIRAcetam 500 MG TABLET PO SCH ×2 (08:30→17:06)
[2018-10-29] MEDS: CloZAPine 100 MG TABLET PO SCH ×2 (08:30→20:31)
[2018-10-29] MEDS: CHOLECALCIFEROL (VIT D3) 400 UNITS TABLET PO SCH ×2 (08:30→17:06)
[2018-10-29] MEDS: FLUTICASONE/VILANTEROL 200-25 MCG/INH INHALER [14] IH SCH (08:35)
[2018-10-29 08:54] VITALS: BP 154/67
[2018-10-29 16:30] VITALS: BP 132/83
[2018-10-29] MEDS: HALOPERIDOL 10 MG TABLET PO SCH (20:29)
[2018-10-30] MEDS: CINACALCET HCL 30 MG TABLET PO SCH (07:18)
[2018-10-30 08:05] VITALS: BP 126/73
[2018-10-30] MEDS: CHOLECALCIFEROL (VIT D3) 400 UNITS TABLET PO SCH ×2 (08:16→16:07)
[2018-10-30] MEDS: DIVALPROEX SODIUM 500 MG DR TABLET PO SCH ×2 (08:16→20:05)
[2018-10-30] MEDS: FLUTICASONE/VILANTEROL 200-25 MCG/INH INHALER [14] IH SCH (08:16)
[2018-10-30] MEDS: CloZAPine 100 MG TABLET PO SCH ×2 (08:17→20:06)
[2018-10-30] MEDS: LevETIRAcetam 500 MG TABLET PO SCH ×2 (08:17→16:07)
[2018-10-30] MEDS: IBUPROFEN 400 MG TABLET PO PRN (09:44)
[2018-10-30 09:45] VITALS: BP 118/80
[2018-10-30 16:43] VITALS: BP 138/87
[2018-10-30] MEDS: HALOPERIDOL 10 MG TABLET PO SCH (20:05)
[2018-10-31] MEDS: CINACALCET HCL 30 MG TABLET PO SCH (06:47)
[2018-10-31 08:22] VITALS: BP 118/66
[2018-10-31] MEDS: CHOLECALCIFEROL (VIT D3) 400 UNITS TABLET PO SCH ×2 (09:41→16:31)
[2018-10-31] MEDS: DIVALPROEX SODIUM 500 MG DR TABLET PO SCH ×2 (09:41→21:15)
[2018-10-31] MEDS: LevETIRAcetam 500 MG TABLET PO SCH ×2 (09:41→16:31)
[2018-10-31] MEDS: CloZAPine 100 MG TABLET PO SCH ×2 (09:41→21:15)
[2018-10-31] MEDS: FLUTICASONE/VILANTEROL 200-25 MCG/INH INHALER [14] IH SCH (09:42)
[2018-10-31] MEDS: HALOPERIDOL 10 MG TABLET PO SCH (21:15)
[2018-10-31 22:11] VITALS: BP 135/86
[2018-11-01] MEDS: CINACALCET HCL 30 MG TABLET PO SCH (07:04)
[2018-11-01] MEDS: LevETIRAcetam 500 MG TABLET PO SCH ×2 (08:08→16:36)
[2018-11-01] MEDS: FLUTICASONE/VILANTEROL 200-25 MCG/INH INHALER [14] IH SCH (08:08)
[2018-11-01] MEDS: CloZAPine 100 MG TABLET PO SCH ×2 (08:09→20:31)
[2018-11-01] MEDS: CHOLECALCIFEROL (VIT D3) 400 UNITS TABLET PO SCH ×2 (08:09→16:36)
[2018-11-01] MEDS: DIVALPROEX SODIUM 500 MG DR TABLET PO SCH ×2 (08:09→20:31)
[2018-11-01 09:24] VITALS: BP 146/91
[2018-11-01] MEDS ORDERED: TUBERCULIN, PURIFIED PROTEIN DERIVATIVE 5 TU/0.1 ML SYG ID ONE (11:15)
[2018-11-01] MEDS: HALOPERIDOL 10 MG TABLET PO SCH (20:31)
[2018-11-01 20:50] VITALS: BP 134/87
[2018-11-02] MEDS: CINACALCET HCL 30 MG TABLET PO SCH (07:16)
[2018-11-02] MEDS: LevETIRAcetam 500 MG TABLET PO SCH ×2 (08:08→15:59)
[2018-11-02] MEDS: CHOLECALCIFEROL (VIT D3) 400 UNITS TABLET PO SCH ×2 (08:08→15:59)
[2018-11-02] MEDS: DIVALPROEX SODIUM 500 MG DR TABLET PO SCH ×2 (08:08→20:48)
[2018-11-02] MEDS: CloZAPine 100 MG TABLET PO SCH ×2 (08:09→20:49)
[2018-11-02] MEDS: FLUTICASONE/VILANTEROL 200-25 MCG/INH INHALER [14] IH SCH (08:09)
[2018-11-02] MEDS: IBUPROFEN 400 MG TABLET PO PRN (08:28)
[2018-11-02 08:30] VITALS: BP 146/86
[2018-11-02] MEDS: HALOPERIDOL 5 MG TABLET PO PRN (14:07)
[2018-11-02 16:00] VITALS: BP 101/60
[2018-11-02] MEDS: HALOPERIDOL 10 MG TABLET PO SCH (20:48)
[2018-11-03] MEDS: CINACALCET HCL 30 MG TABLET PO SCH (07:17)
[2018-11-03 08:01] VITALS: BP 124/85
[2018-11-03] MEDS: DIVALPROEX SODIUM 500 MG DR TABLET PO SCH ×2 (08:04→21:04)
[2018-11-03] MEDS: LevETIRAcetam 500 MG TABLET PO SCH ×2 (08:04→16:10)
[2018-11-03] MEDS: CHOLECALCIFEROL (VIT D3) 400 UNITS TABLET PO SCH ×2 (08:04→16:10)
[2018-11-03] MEDS: CloZAPine 100 MG TABLET PO SCH ×2 (08:04→21:04)
[2018-11-03] MEDS: FLUTICASONE/VILANTEROL 200-25 MCG/INH INHALER [14] IH SCH (08:04)
[2018-11-03 16:38] VITALS: BP 126/79
[2018-11-03] MEDS: HALOPERIDOL 10 MG TABLET PO SCH (21:04)
[2018-11-04] MEDS: CINACALCET HCL 30 MG TABLET PO SCH (06:56)
[2018-11-04 07:07] LABS: BASOPHILS % (AUTO) 0.5 % (0.0-2.0); EOSINOPHILS % (AUTO) 5.7 % (1.0-6.0); HEMATOCRIT 44.3 % (41-53); LYMPHOCYTES # (AUTO) 2.6 K/uL (1.0-4.8); LYMPHOCYTES % (AUTO) 33.3 % (22.0-44.0); MEAN CORPUSCULAR HEMOGLOBIN 31.4 pg (26.0-34.0); MEAN CORPUSCULAR HGB CONC 33.9 G/dL (31.0-37.0); MEAN CORPUSCULAR VOLUME 93 fL (80-100); MONOCYTES # (AUTO) 0.7 K/uL (0.1-1.0); MONOCYTES % (AUTO) 8.4 % (2.0-9.0); NEUTROPHILS # (AUTO) 4.1 K/uL (1.8-7.7); NEUTROPHILS % (AUTO) 52.1 % (40.0-70.0); PLATELET COUNT (AUTO) 106 K/uL (150-450); RED BLOOD CELL COUNT(AUTO) 4.79 MIL/uL (4.50-5.90); RED CELL DISTRIBUTION WIDTH 14.3 % (11.5-14.5)
[2018-11-04 08:05] VITALS: BP 162/96
[2018-11-04] MEDS: FLUTICASONE/VILANTEROL 200-25 MCG/INH INHALER [14] IH SCH (08:15)
[2018-11-04] MEDS: LevETIRAcetam 500 MG TABLET PO SCH ×2 (08:16→16:34)
[2018-11-04] MEDS: CloZAPine 100 MG TABLET PO SCH ×2 (08:16→20:37)
[2018-11-04] MEDS: DIVALPROEX SODIUM 500 MG DR TABLET PO SCH ×2 (08:16→20:37)
[2018-11-04] MEDS: CHOLECALCIFEROL (VIT D3) 400 UNITS TABLET PO SCH ×2 (08:17→16:34)
[2018-11-04] MEDS: HALOPERIDOL 10 MG TABLET PO SCH (20:37)
[2018-11-05 01:45] VITALS: BP 139/89
[2018-11-05 02:00] VITALS: BP 139/89
[2018-11-05] MEDS: MAG HYDROX/AL HYDROX/SIMETH ES 30 ML SUSPENSION UDCUP PO PRN (02:05)
[2018-11-05] MEDS: ONDANSETRON HCL 4 MG TABLET PO PRN (02:43)
[2018-11-05] MEDS: CINACALCET HCL 30 MG TABLET PO SCH (07:15)
[2018-11-05 08:05] VITALS: BP 105/60
[2018-11-05] MEDS: CHOLECALCIFEROL (VIT D3) 400 UNITS TABLET PO SCH ×2 (08:42→16:14)
[2018-11-05] MEDS: LevETIRAcetam 500 MG TABLET PO SCH ×2 (08:42→16:14)
[2018-11-05] MEDS: CloZAPine 100 MG TABLET PO SCH ×2 (08:42→21:00)
[2018-11-05] MEDS: DIVALPROEX SODIUM 500 MG DR TABLET PO SCH ×2 (08:42→21:00)
[2018-11-05] MEDS: FLUTICASONE/VILANTEROL 200-25 MCG/INH INHALER [14] IH SCH (08:47)
[2018-11-05] MEDS: LOPERAMIDE HCL 2 MG CAPSULE PO PRN (15:51)
[2018-11-05 20:57] VITALS: BP 122/91
[2018-11-05] MEDS: HALOPERIDOL 10 MG TABLET PO SCH (21:00)
[2018-11-06] MEDS: CINACALCET HCL 30 MG TABLET PO SCH (06:52)
[2018-11-06] MEDS: CHOLECALCIFEROL (VIT D3) 400 UNITS TABLET PO SCH ×2 (08:08→16:12)
[2018-11-06] MEDS: DIVALPROEX SODIUM 500 MG DR TABLET PO SCH ×2 (08:08→20:26)
[2018-11-06] MEDS: CloZAPine 100 MG TABLET PO SCH ×2 (08:08→20:26)
[2018-11-06] MEDS: LevETIRAcetam 500 MG TABLET PO SCH ×2 (08:08→16:12)
[2018-11-06] MEDS: FLUTICASONE/VILANTEROL 200-25 MCG/INH INHALER [14] IH SCH (08:09)
[2018-11-06 09:56] VITALS: BP 136/76
[2018-11-06] MEDS: LOPERAMIDE HCL 2 MG CAPSULE PO PRN (15:18)
[2018-11-06] MEDS: ONDANSETRON HCL 4 MG TABLET PO PRN (16:12)
[2018-11-06 17:00] VITALS: BP 100/67
[2018-11-06] MEDS: MAG HYDROX/AL HYDROX/SIMETH ES 30 ML SUSPENSION UDCUP PO PRN (19:20)
[2018-11-06] MEDS: HALOPERIDOL 10 MG TABLET PO SCH (20:26)
[2018-11-07] MEDS: CINACALCET HCL 30 MG TABLET PO SCH (07:13)
[2018-11-07] MEDS: CloZAPine 100 MG TABLET PO SCH ×2 (08:28→20:09)
[2018-11-07] MEDS: CHOLECALCIFEROL (VIT D3) 400 UNITS TABLET PO SCH ×2 (08:29→16:12)
[2018-11-07] MEDS: DIVALPROEX SODIUM 500 MG DR TABLET PO SCH ×2 (08:29→20:09)
[2018-11-07] MEDS: LevETIRAcetam 500 MG TABLET PO SCH ×2 (08:29→16:12)
[2018-11-07] MEDS: FLUTICASONE/VILANTEROL 200-25 MCG/INH INHALER [14] IH SCH (08:32)
[2018-11-07] MEDS: MAG HYDROX/AL HYDROX/SIMETH ES 30 ML SUSPENSION UDCUP PO PRN (09:33)
[2018-11-07 10:12] VITALS: BP 118/77
[2018-11-07 17:21] VITALS: BP 141/86
[2018-11-07] MEDS: HALOPERIDOL 10 MG TABLET PO SCH (20:09)
[2018-11-08] MEDS: CINACALCET HCL 30 MG TABLET PO SCH (06:49)
[2018-11-08 08:05] VITALS: BP 118/78
[2018-11-08] MEDS: LevETIRAcetam 500 MG TABLET PO SCH ×2 (08:06→16:03)
[2018-11-08] MEDS: FLUTICASONE/VILANTEROL 200-25 MCG/INH INHALER [14] IH SCH (08:06)
[2018-11-08] MEDS: CHOLECALCIFEROL (VIT D3) 400 UNITS TABLET PO SCH ×2 (08:06→16:03)
[2018-11-08] MEDS: DIVALPROEX SODIUM 500 MG DR TABLET PO SCH ×2 (08:06→20:07)
[2018-11-08] MEDS: CloZAPine 100 MG TABLET PO SCH ×2 (08:07→20:07)
[2018-11-08 17:18] VITALS: BP 115/70
[2018-11-08] MEDS: HALOPERIDOL 10 MG TABLET PO SCH (20:07)
[2018-11-09] MEDS: CINACALCET HCL 30 MG TABLET PO SCH (06:52)
[2018-11-09] MEDS: LevETIRAcetam 500 MG TABLET PO SCH ×2 (07:49→17:12)
[2018-11-09] MEDS: CloZAPine 100 MG TABLET PO SCH ×2 (07:49→20:35)
[2018-11-09] MEDS: CHOLECALCIFEROL (VIT D3) 400 UNITS TABLET PO SCH ×2 (07:50→17:12)
[2018-11-09] MEDS: DIVALPROEX SODIUM 500 MG DR TABLET PO SCH ×2 (07:50→20:35)
[2018-11-09] MEDS: FLUTICASONE/VILANTEROL 200-25 MCG/INH INHALER [14] IH SCH (07:55)
[2018-11-09] MEDS: MAG HYDROX/AL HYDROX/SIMETH ES 30 ML SUSPENSION UDCUP PO PRN (08:14)
[2018-11-09 08:47] VITALS: BP 103/75
[2018-11-09] MEDS: DOCUSATE SODIUM 100 MG CAPSULE PO PRN (12:49)
[2018-11-09 16:30] VITALS: BP 121/85
[2018-11-09] MEDS: HALOPERIDOL 10 MG TABLET PO SCH (20:36)
[2018-11-10] MEDS: CINACALCET HCL 30 MG TABLET PO SCH (07:01)
[2018-11-10] MEDS: CloZAPine 100 MG TABLET PO SCH (08:17)
[2018-11-10] MEDS: DIVALPROEX SODIUM 500 MG DR TABLET PO SCH (08:17)
[2018-11-10] MEDS: LevETIRAcetam 500 MG TABLET PO SCH (08:17)
[2018-11-10] MEDS: CHOLECALCIFEROL (VIT D3) 400 UNITS TABLET PO SCH (08:17)
[2018-11-10] MEDS: FLUTICASONE/VILANTEROL 200-25 MCG/INH INHALER [14] IH SCH (08:21)
[2018-11-10 09:05] VITALS: BP 128/86
[2018-11-10] MEDS: NICOTINE 14 MG/24 HOUR PATCH TD PRN (09:28)
[2018-11-10] MEDS ORDERED: CLOZ100 PO ×2 (10:51→10:52)
[2018-11-10] MEDS ORDERED: HALO10 PO (10:56)
[2018-11-10] MEDS ORDERED: VITAD400 PO (10:57)
[2018-11-10] MEDS ORDERED: DIVA500T52 PO (11:00)
[2018-11-10] MEDS: HALOPERIDOL 5 MG TABLET PO PRN (12:35)
== END 2018-11-10 16:15 | DRG 885 ==
LOC: EMS 12:10 → UNDOADMIN 07-29 06:00 → B2X 07-29 06:00 → 3EX 07-29 11:05
PROVIDERS: ADMIT Psychiatry & Neurology Child & Adolescent Psychiatry; ATTEND Psychiatry & Neurology Psychiatry
PROC: 3E0234Z Introduction of Serum, Toxoid and Vaccine into Muscle, Percutaneous Approach (ICD-10-PCS; principal; 2018-08-28)
DX: F20.0 Paranoid schizophrenia (principal); B18.2 Chronic viral hepatitis C; N25.81 Secondary hyperparathyroidism of renal origin; D64.9 Anemia, unspecified; D69.6 Thrombocytopenia, unspecified; E11.9 Type 2 diabetes mellitus without complications; E55.9 Vitamin D deficiency, unspecified; F17.200 Nicotine dependence, unspecified, uncomplicated; E78.5 Hyperlipidemia, unspecified; G40.909 Epilepsy, unspecified, not intractable, without status epilepticus; I10 Essential (primary) hypertension; J44.9 Chronic obstructive pulmonary disease, unspecified; K21.9 Gastro-esophageal reflux disease without esophagitis; K74.60 Unspecified cirrhosis of liver; Z23 Encounter for immunization; Z88.0 Allergy status to penicillin; Z88.8 Allergy status to other drugs, medicaments and biological substances; Z71.6 Tobacco abuse counseling; Z79.899 Other long term (current) drug therapy
CPT/HCPCS: 80159; 82306; 83036; 83970; 84443; 87081; 90732; 93005; G0378; G0480; J1200; J1630; J2060; J3535; Q0162